=== PATIENT | male | born 1980 | race American Indian/Alaskan Native ===

== ENCOUNTER 2017-11-23 13:29 | Inpatient (IN) | payer OTHER ==
[2017-11-23 13:47] VITALS: TEMP 98.8; BMI 27.9
--- NOTE | 2017-11-23 14:33 | PDOC ---
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 Was just at his PCP Dr. Suárez who thinks he may have seen a right sided kidney stone on bedside U/S No previous history of kidney stones or appendicitis. Denies fever but states he hasn't been feeling hungry all day. Denies dysuria, hematuria. Past History - Past Medical History Allergies/Adverse Reactions: Allergies Allergy/AdvReac Type Severity Reaction Status Date / Time No Known Allergies Allergy Verified 11/23/17 13:44 Home Medications: Ambulatory Orders NK [No Known Home Medication] 11/23/17 Anemia: No Asthma: No Cancer: No Cardiac Disorders: No CVA: No COPD: No CHF: No Dementia: No Diabetes: No GI Disorders: Yes (RECTAL BLEEDING) Disorders: No HTN: No Hypercholesterolemia: No Liver Disease: No Seizures: No Thyroid Disease: No - Immunization History Immunization Up to Date: Yes - Suicide/Smoking/Psychosocial Hx Smoking History: Current every day smoker Have you smoked in the past 12 months: Yes Number of Cigarettes Smoked Daily: 10 Information on smoking cessation initiated: No Hx Alcohol Use: No Drug/Substance Use Hx: No Substance Use Type: None Review of Systems - Review of Systems Able to Perform ROS?: Yes Is the patient limited Djib[place]ian proficient: No Constitutional: Yes: Loss of Appetite HEENTM: No: Symptoms Reported Respiratory: No: Symptoms reported Cardiac (ROS): No: Symptoms Reported ABD/GI: Yes: See HPI : No: Symptoms Reported Musculoskeletal: No: Symptoms Reported Integumentary: No: Symptoms Reported Neurological: No: Symptoms reported All Other Systems: Reviewed and Negative *Physical Exam - Vital Signs Last Vital Signs Temp Pulse Resp BP Pulse Ox 98.8 F 108 H 14 139/82 100 11/23/17 13:45 11/23/17 13:45 11/23/17 13:45 11/23/17 13:45 11/23/17 13:45 - Physical Exam General Appearance: Yes: Nourished, Appropriately Dressed. No: Apparent Distress HEENT: positive: EOMI, HUAN, Normal ENT Inspection Respiratory/Chest: positive: Lungs Clear, Normal Breath Sounds. negative: Chest Tender, Respiratory Distress Cardiovascular: positive: Regular Rhythm, Regular Rate, S1, S2 Gastrointestinal/Abdominal: positive: Normal Bowel Sounds, Tender (right lower quadrant), Flat, Soft Musculoskeletal: positive: Normal Inspection. negative: CVA Tenderness Extremity: positive: Normal Capillary Refill, Normal Inspection, Normal Range of Motion Neurologic: positive: Fully Oriented, Alert, Normal Mood/Affect ED Treatment Course - LABORATORY CBC & Chemistry Diagram: 11/23/17 15:20 11/23/17 15:20 Medical Decision Making - Medical Decision Making 11/23/17 14:59 nephrolithiasis vs appendicitis vs bleed 11/23/17 16:41 All labs within normal limits, no anemia, CT abd pending. 11/23/17 20:06 There is a thick walled tubular structure within the right lower quadrant consistent with an inflamed appendix. Inflammatory stranding and free fluid is noted in this location. This is suspicious for rupture. No discrete abscess is present, however. Patient started on Antibiotics. Ordered factor 8, blood bank doesnt have any. Consulted Dr. Campbell, Kamini Manzano and hospitalist Dr. Perry and [employer]QU[employer] Rhonda Fischer. Paged Dr. Smith and the patient's Branch Assistant Dr. Vanessa Kellogg (dr. Kelton Ibrahim commercial collections driver) callback pending. *DC/Admit/Observation/Transfer Diagnosis at time of Disposition: Appendicitis - Discharge Dispostion Admit: Yes - Referrals Referrals: Mati Suárez MD [Primary Care Provider] - - Patient Instructions - Post Discharge Activity
--- NOTE | 2017-11-23 14:48 | PDOC ---
Attending Attestation - Resident Resident Name: Otto Decker - HPI HPI: 11/23/17 16:47 Pt presents to the ED complaining of R sided abdominal pain that has been present for several days. Denies fever, nausea or vomiting. History of hemophilia, with recent factor VIII adminstration last week. Denies trauma to the abdomen or urianry complaints. - Physicial Exam PE: 11/23/17 16:49 Agree with resident exam. Abdomen is tender diffusely on the right side on my exam. No bruising or abdominal distention. No guarding or rebound. - Medical Decision Making 11/23/17 16:50 PT presents to the ED complaining of abdominal pain. Differential includes renal stone, less likely bilary disease. Patient denies history of trauma to the abdomen, but given his history of hemophilia , will check CT to rule out renal stone, biliary disease or less likely, internal bleeding. Will reassess.
[2017-11-23 15:30] LABS: BASO % 0.3 % (0-2.0); EOS % 0.4 % (0-4.5); HEMATOCRIT 47.6 % (35.4-49); HEMOGLOBIN 16.1 GM/dL (11.7-16.9); LYMPH % 13.4 % (8-40); MCH 29.3 pg (25.7-33.7); MCHC 33.7 g/dl (32.0-35.9); MEAN CELL VOLUME 86.9 fl (80-96); MEAN PLT VOLUME 9.1 fl (7.5-11.1); MONO % 6.8 % (3.8-10.2); NEUT % 79.1 % (42.8-82.8); PLATELET COUNT 225 K/MM3 (134-434); RBC 5.48 M/mm3 (4.00-5.60); RDW 13.6 % (11.9-15.9); WHITE BLOOD COUNT 10.6 K/mm3 (4.0-10.0)
[2017-11-23 15:38] LABS: URINE APPEARANCE CLEAR; URINE BILIRUBIN NEGATIVE (NEGATIVE); URINE BLOOD NEGATIVE (NEGATIVE); URINE COLOR STRAW; URINE GLUCOSE (UA) NEGATIVE (NEGATIVE); URINE KETONE NEGATIVE (NEGATIVE); URINE LEUK ESTERASE NEGATIVE (NEGATIVE); URINE NITRITE NEGATIVE (NEGATIVE); URINE PROTEIN NEGATIVE (NEGATIVE); URINE UROBILINOGEN NEGATIVE mg/dL (0.2-1.0)
[2017-11-23] MEDS ORDERED: KETOROLAC TROMETHAMINE 15 MG/ML VIAL IVPUSH ONE (15:44)
[2017-11-23] MEDS ORDERED: KETOROLAC TROMETHAMINE 15 MG/ML VIAL ONE (15:45)
[2017-11-23 16:00] LABS: ALBUMIN 4.3 g/dl (3.4-5.0); ANION GAP 12 (8-16); BILIRUBIN,TOTAL 0.6 mg/dL (0.2-1.0); BLOOD UREA NITROGEN 5 mg/dL (7-18); CALCIUM 9.2 mg/dL (8.5-10.1); CHLORIDE 102 mmol/L (98-107); CO2 24 mmol/L (21-32); CREATININE 0.8 mg/dL (0.7-1.3); GLUCOSE,RANDOM 96 mg/dL (74-106); POTASSIUM 4.3 mmol/L (3.5-5.1); SGOT/AST 15 U/L (15-37); SGPT/ALT 18 U/L (12-78); SODIUM 138 mmol/L (136-145); TOT PROT 8.1 g/dl (6.4-8.2)
[2017-11-23 16:01] LABS: ALK PHOS 72 U/L (45-117)
[2017-11-23] MEDS ORDERED: ONDANSETRON 4 MG/2 ML VIAL IVPUSH ONE (18:09)
[2017-11-23] MEDS ORDERED: SODIUM CHLORIDE 1,000 ML IV STA ×2 (18:09→19:50)
[2017-11-23] MEDS ORDERED: ONDANSETRON 4 MG/2 ML VIAL ONE (18:28)
[2017-11-23] MEDS ORDERED: CEFAZOLIN 1 GM PUSH 1 GM/10 ML SYRINGE IVPUSH ONE (19:21)
--- NOTE | 2017-11-23 19:35 | CONSULT ---
Consult Consult Specialty:: general surgery Referred by:: Dr. Decker ED Reason for Consultation:: abdominal pain - History of Present Illness Chief Complaint: 3 days of abdominal pain History of Present Illness: 37 yo male with hemophelia A presented with 3 days of abdominal pain to the emergency department. CT scan reveals acute appendicitis. both hematology and surgery agree that this problem if it is to require surgical management the patient is best served at a tertiary care center - History Source History Provided By: Patient, Medical Record Limitations to Obtaining History: No Limitations - Past Medical History Heme/Onc: Yes: Bleeding Disorder (Hemophelia A) - Alcohol/Substance Use Hx Alcohol Use: No - Smoking History Smoking history: Current every day smoker Have you smoked in the past 12 months: Yes Aproximately how many cigarettes per day: 10 Home Medications - Allergies Allergies/Adverse Reactions: Allergies Allergy/AdvReac Type Severity Reaction Status Date / Time No Known Allergies Allergy Verified 11/23/17 13:44 - Home Medications Home Medications: Ambulatory Orders NK [No Known Home Medication] 11/23/17 Physical Exam Vital Signs: Vital Signs Temperature 98.8 F 11/23/17 13:45 Pulse Rate 74 11/23/17 17:40 Respiratory Rate 14 11/23/17 13:45 Blood Pressure 134/66 11/23/17 17:40 O2 Sat by Pulse Oximetry (%) 100 11/23/17 17:40 Labs: CBC, BMP 11/23/17 15:20 11/23/17 15:20 Problem List - Problems (1) Appendicitis Assessment/Plan: Have not had the opportunity to examine the patient but agree with transfer to tertiary center for further management. Code(s): K37 - UNSPECIFIED APPENDICITIS Qualifiers: Appendicitis type: acute appendicitis Acute appendicitis type: with localized peritonitis Qualified Code(s): K35.3 - Acute appendicitis with localized peritonitis (2) Hemophilia A Code(s): D66 - HEREDITARY FACTOR VIII DEFICIENCY (3) GERD (gastroesophageal reflux disease) Code(s): K21.9 - GASTRO-ESOPHAGEAL REFLUX DISEASE WITHOUT ESOPHAGITIS Qualifiers: Esophagitis presence: without esophagitis Qualified Code(s): K21.9 - Gastro -esophageal reflux disease without esophagitis (4) Headache Code(s): R51 - HEADACHE
[2017-11-23] MEDS ORDERED: CEFAZOLIN 1 GM PUSH 1 GM/10 ML DISP.SYRIN IVPUSH ONE (19:48)
[2017-11-23 20:23] LABS: INR 1.03 (0.82-1.09); PROTHROMBIN TIME (PATIENT) 11.6 SEC (9.98-11.88)
[2017-11-23 20:25] LABS: ACTIVATED PTT 74.9 SECONDS (26.9-34.4)
--- NOTE | 2017-11-23 20:29 | HP ---
CHIEF COMPLAINT: Abdominal pain PCP: Kamini; Hematology: [facility] [phone] HISTORY OF PRESENT ILLNESS: This is a 37 year old male with a significant past medical history of hemophilia who presented to the ED with a 2 day history of generalized abdominal pain that has localized to his RLQ. He denies vomiting but reports loss of appetite. ER course was notable for: (1) CT c/w appendicitis, concerning for rupture (2) WBC 10.6 Recent Travel: pt denies PAST MEDICAL HISTORY: hemophilia-last received factor VIII last week PAST SURGICAL HISTORY: pt denies- has had tooth extractions in past Social History: Smokin/2 PPD x 10 years Alcohol: pt denies Drugs: pt denies Family History: mother with DM father age 58, CVA 1 brother, 2 sisters without any medical problems Allergies No Known Allergies Allergy (Verified 11/23/17 13:44) HOME MEDICATIONS: 3 Medication Instructions Recorded NK [No Known Home Medication] 11/23/17 REVIEW OF SYSTEMS CONSTITUTIONAL: Absent: fever, chills, diaphoresis, generalized weakness, malaise, loss of appetite, weight change HEENT: Absent: rhinorrhea, nasal congestion, throat pain, throat swelling, difficulty swallowing, mouth swelling, ear pain, eye pain, visual changes CARDIOVASCULAR: Absent: chest pain, syncope, palpitations, irregular heart rate, lightheadedness , peripheral edema RESPIRATORY: Absent: cough, shortness of breath, dyspnea with exertion, orthopnea, wheezing, stridor, hemoptysis GASTROINTESTINAL: Present: abdominal pain Absent: abdominal distension, nausea, vomiting, diarrhea, constipation, melena, hematochezia GENITOURINARY: Absent: dysuria, frequency, urgency, hesitancy, hematuria, flank pain, genital pain MUSCULOSKELETAL: Absent: myalgia, arthralgia, joint swelling, back pain, neck pain SKIN: Absent: rash, itching, pallor HEMATOLOGIC/IMMUNOLOGIC: Absent: easy bleeding, easy bruising, lymphadenopathy, frequent infections ENDOCRINE: Absent: unexplained weight gain, unexplained weight loss, heat intolerance, cold intolerance NEUROLOGIC: Absent: headache, focal weakness or paresthesias, dizziness, unsteady gait, seizure, mental status changes, bladder or bowel incontinence PSYCHIATRIC: Absent: anxiety, depression, suicidal or homicidal ideation, hallucinations. PHYSICAL EXAMINATION Vital Signs - 24 hr 3 11/23/17 11/23/17 13:45 17:40 Temperature 98.8 F Pulse Rate 108 H Pulse Rate [ 74 Apical] Respiratory 14 Rate Blood Pressure 139/82 Blood Pressure 134/66 [Right Arm] O2 Sat by Pulse 100 100 Oximetry (%) GENERAL: Awake, alert, and fully oriented, in no acute distress. HEAD: Normal with no signs of trauma. EYES: Pupils equal, round and reactive to light, extraocular movements intact, sclera anicteric, conjunctiva clear. No lid lag. EARS, NOSE, THROAT: Ears normal, nares patent, oropharynx clear without exudates. Moist mucous membranes. NECK: Normal range of motion, supple without lymphadenopathy, JVD, or masses. LUNGS: Breath sounds equal, clear to auscultation bilaterally. No wheezes, and no crackles. No accessory muscle use. HEART: Regular rate and rhythm, normal S1 and S2 without murmur, rub or gallop. ABDOMEN: Soft, not distended, normoactive bowel sounds, + guarding, no rebound, no masses. No hepatomegaly or splenomegaly. Tender to palpation RLQ MUSCULOSKELETAL: Normal range of motion at all joints. No bony deformities or tenderness. No CVA tenderness. UPPER EXTREMITIES: 2+ pulses, warm, well-perfused. No cyanosis. No clubbing. No peripheral edema. LOWER EXTREMITIES: 2+ pulses, warm, well-perfused. No calf tenderness. No peripheral edema. NEUROLOGICAL: Cranial nerves II-XII intact. Normal speech. Normal gait. PSYCHIATRIC: Cooperative. Good eye contact. Appropriate mood and affect. SKIN: Warm, dry, normal turgor, no rashes or lesions noted, normal capillary refill. Laboratory Results - last 24 hr 3 11/23/17 11/23/17 11/23/17 11/23/17 15:20 15:20 15:20 19:35 WBC 10.6 H D RBC 5.48 Hgb 16.1 D Hct 47.6 MCV 86.9 MCH 29.3 D MCHC 33.7 RDW 13.6 D Plt Count 225 MPV 9.1 Neutrophils % 79.1 D Lymphocytes % 13.4 D Monocytes % 6.8 Eosinophils % 0.4 Basophils % 0.3 PT with INR 11.60 INR 1.03 PTT (Actin FS) 74.9 H Sodium 138 Potassium 4.3 Chloride 102 Carbon Dioxide 24 Anion Gap 12 BUN 5 L D Creatinine 0.8 Creat Clearance w eGFR > 60 Random Glucose 96 D Calcium 9.2 Total Bilirubin 0.6 D AST 15 ALT 18 D Alkaline Phosphatase 72 Total Protein 8.1 Albumin 4.3 Urine Color Straw Urine Appearance Clear Urine pH 7.0 Ur Specific [place] 1.006 Urine Protein Negative Urine Glucose (UA) Negative Urine Ketones Negative Urine Blood Negative Urine Nitrite Negative Urine Bilirubin Negative Urine Urobilinogen Negative Ur Leukocyte Esterase Negative Radiology Reports CT abd/pelvis The lung bases are clear. There is a thick walled tubular structure within the right lower quadrant consistent with an inflamed appendix. Inflammatory stranding and free fluid is noted in this location. This is suspicious for rupture. No discrete abscess is present, however. The liver, spleen, pancreas, adrenal glands and kidneys demonstrate no significant abnormalities. There is no evidence of intra-abdominal or retroperitoneal lymphadenopathy or fluid collections. There is no evidence of pneumoperitoneum, bowel obstruction or intra-abdominal abscess. Examination of the pelvis demonstrates no evidence of pelvic masses, fluid collections or lymphadenopathy. There is no evidence of acute bony abnormalities. IMPRESSION: Findings consistent with acute appendicitis with inflammatory changes and free fluid suspicious for rupture. No discrete abscess. Please see above discussion. Reported By: Sanjiv Rowe MD 11/23/171912 ASSESSMENT/PLAN: 37yM with PMH hemophilia, factor VIII deficiency presented to the ED with abdominal pain. CT revealed acute appendicitis concerning for rupture. Acute Appendicitis - given flagyl and cefazolin in ED - given hemophilia, hematology, Dr Smith, was consulted and he [facility] contacted. Dr. Sb Grossman from surgery accepted pt. - Pt's private hematology group was contacted, DW Dr. Ibrahim who is covering and made aware of transfer. He is in agreement. He will follow pt once at [facility] - ED made aware of transfer. Pt will be an ED to ED transfer. - CT scan contacted who will upload images to regional PACS system. MARY - NS @ 75cc/hr - BMP WNL - NPO Dispo: pt to be transferred to [facility]. Visit type - Emergency Visit Emergency Visit: Yes ED Registration Date: 11/23/17 Care time: The patient presented to the Emergency Department on the above date and was hospitalized for further evaluation of their emergent condition. - New Patient This patient is new to me today: Yes Date on this admission: 11/23/17 - Critical Care Critical Care patient: No Hospitalist Screening - Colonoscopy Questionnaire Colonoscopy Questionnaire: Colonoscopy Questionnaire - Patient: 50 - 75 years old and never had a screening colonoscopy: No History of colon or rectal polyps, or CA: No History of IBD, Crohn's disease or UC: No History of abdominal radiation therapy as a child: No - Relative: 1 with colon or rectal CA, or polyps at age 60 or younger: No Colon or rectal CA diagnosed at age 45 or younger: No Multiple relatives with colon or rectal CA: No - Outcome: Screening Result: Negative Screen
[2017-11-23 20:55] VITALS: BP 124/91; PULSE 89
--- NOTE | 2017-11-23 21:24 | DS ---
Physical Exam: SUBJECTIVE: Patient seen and examined OBJECTIVE: Vital Signs Period Temp Pulse Resp BP Sys/Gonzalez Pulse Ox Last 24 Hr 98.8 F 74-108 14-16 124-139/66-91 100-100 PHYSICAL EXAM GENERAL: The patient is awake, alert, and fully oriented, in no acute distress. HEAD: Normal with no signs of trauma. EYES: PERRL, extraocular movements intact, sclera anicteric, conjunctiva clear. ENT: Ears normal, nares patent, oropharynx clear without exudates, moist mucous membranes. NECK: Trachea midline, full range of motion, supple. LUNGS: Breath sounds equal, clear to auscultation bilaterally, no wheezes, no crackles, no accessory muscle use. HEART: Regular rate and rhythm, S1, S2 without murmur, rub or gallop. ABDOMEN: Soft, nontender, nondistended, normoactive bowel sounds, no guarding, no rebound, no hepatosplenomegaly, no masses. EXTREMITIES: 2+ pulses, warm, well-perfused, no edema. NEUROLOGICAL: Cranial nerves II through XII grossly intact. Normal speech, gait not observed. PSYCH: Normal mood, normal affect. SKIN: Warm, dry, normal turgor, no rashes or lesions noted. LABS Laboratory Results - last 24 hr 11/23/17 11/23/17 11/23/17 15:20 15:20 15:20 WBC 10.6 H D RBC 5.48 Hgb 16.1 D Hct 47.6 MCV 86.9 MCH 29.3 D MCHC 33.7 RDW 13.6 D Plt Count 225 MPV 9.1 Neutrophils % 79.1 D Lymphocytes % 13.4 D Monocytes % 6.8 Eosinophils % 0.4 Basophils % 0.3 PT with INR INR PTT (Actin FS) Sodium 138 Potassium 4.3 Chloride 102 Carbon Dioxide 24 Anion Gap 12 BUN 5 L D Creatinine 0.8 Creat Clearance w eGFR > 60 Random Glucose 96 D Calcium 9.2 Total Bilirubin 0.6 D AST 15 ALT 18 D Alkaline Phosphatase 72 Total Protein 8.1 Albumin 4.3 Urine Color Straw Urine Appearance Clear Urine pH 7.0 Ur Specific [place] 1.006 Urine Protein Negative Urine Glucose (UA) Negative Urine Ketones Negative Urine Blood Negative Urine Nitrite Negative Urine Bilirubin Negative Urine Urobilinogen Negative Ur Leukocyte Esterase Negative 11/23/17 19:35 WBC RBC Hgb Hct MCV MCH MCHC RDW Plt Count MPV Neutrophils % Lymphocytes % Monocytes % Eosinophils % Basophils % PT with INR 11.60 INR 1.03 PTT (Actin FS) 74.9 H Sodium Potassium Chloride Carbon Dioxide Anion Gap BUN Creatinine Creat Clearance w eGFR Random Glucose Calcium Total Bilirubin AST ALT Alkaline Phosphatase Total Protein Albumin Urine Color Urine Appearance Urine pH Ur Specific [place] Urine Protein Urine Glucose (UA) Urine Ketones Urine Blood Urine Nitrite Urine Bilirubin Urine Urobilinogen Ur Leukocyte Esterase HOSPITAL COURSE: Date of Admission:11/23/17 Date of Discharge: 11/23/17 This is a 37 year old male with a PMH of hemophilia, factor VIII deficiency who presented to the ED with abdominal pain, now localizing to RLQ. CT revealed acute appendicitis. Hematology contacted who recommends transfer to [facility] as factor VIII activity is unable to be monitored here. [facility] transfer center contacted. Dr. Sb Grossman accepted pt. Dr. Ibrahim of hematology (covering for Dr. Kellogg) made aware of transfer and his group will follow pt at [facility]. Pt is aware of transfer and is in agreement. Pt to be transferred to [facility]. Minutes to complete discharge: 45 Discharge Summary Reason For Visit: APPENDICITIS Current Active Problems Appendicitis (Acute) Condition: Stable - Instructions Referrals: Mati Suárez MD [Primary Care Provider] - Disposition: TRANSFER ACUTE CARE/OTHER HOSP - Home Medications Comprehensive Discharge Medication List: Ambulatory Orders NK [No Known Home Medication] 11/23/17 This patient is new to me today: Yes Date on this admission: 11/23/17 Emergency Visit: Yes ED Registration Date: 11/23/17 Care time: The patient presented to the Emergency Department on the above date and was hospitalized for further evaluation of their emergent condition. Critical Care patient: No - Discharge Referral Referred to [facility] Med P.C.: No
[2017-11-23] MEDS ORDERED: SODIUM CHLORIDE 1,000 ML IV SCH (21:30)
[2017-11-23] MEDS ORDERED: morphine CARPU-JECT 2 MG/1 ML DISP.SYRIN IVPUSH ONE (21:40)
[2017-11-23] MEDS ORDERED: MORPHINE SULFATE 10 MG/1 ML *VIAL ONE (21:42)
[2017-11-24] MEDS ORDERED: CEFTRIAXONE IN IS-OSM DEXTROSE 2 GM/50 ML BAG IVPB SCH (04:00)
== END 2017-11-23 22:00 | disposition short-term general hospital (02) | DRG 254 ==
LOC: JER 13:29 → JERBED 19:51
PROVIDERS: ADMIT Internal Medicine; ATTEND Nurse Practitioner Family
DX: K35.80 Unspecified acute appendicitis (principal); D66 Hereditary factor VIII deficiency; F17.210 Nicotine dependence, cigarettes, uncomplicated; K21.9 Gastro-esophageal reflux disease without esophagitis; R51 Headache
CPT/HCPCS: 36415; 74177-TC; 80053; 81003; 85025; 85240; 85610; 85730; 86850; 86900; 86901; 87086; 99284-25

== ENCOUNTER 2018-11-19 17:24 | Emergency (ER) | payer OTHER ==
--- NOTE | 2018-11-19 17:38 | PDOC ---
Rapid Medical Evaluation Time Seen by Provider: 11/19/18 17:34 Medical Evaluation: Allergies Allergy/AdvReac Type Severity Reaction Status Date / Time No Known Allergies Allergy Verified 11/23/17 13:44 11/19/18 17:34 I have performed a brief in-person evaluation of this patient. The patient presents with a chief complaint of: GOMEZ w/ dizziness today. Also reports that L leg feels stiff vs heavy but no extremity weakness, visual changes or slurred speech. H/o migraines but reports GOMEZ now feels different, smoker Pertinent physical exam findings:stable, well aris and non-focal I have ordered the following:labs The patient will proceed to the ED for further evaluation. Discharge Disposition - Diagnosis Headache - Referrals - Patient Instructions - Post Discharge Activity
[2018-11-19 17:39] VITALS: BP 133/88; PULSE 86; TEMP 98.4; BMI 30.7
[2018-11-19 18:23] LABS: BASO % 0.6 % (0-2.0); EOS % 0.9 % (0-4.5); HEMATOCRIT 44.5 % (35.4-49); HEMOGLOBIN 15.7 GM/dL (11.7-16.9); LYMPH % 22.6 % (8-40); MCH 31.3 pg (25.7-33.7); MCHC 35.4 g/dl (32.0-35.9); MEAN CELL VOLUME 88.3 fl (80-96); MEAN PLT VOLUME 9.1 fl (7.5-11.1); MONO % 4.5 % (3.8-10.2); NEUT % 71.4 % (42.8-82.8); PLATELET COUNT 236 K/MM3 (134-434); RBC 5.03 M/mm3 (4.00-5.60); RDW 13.4 % (11.9-15.9)
[2018-11-19 19:02] LABS: ALBUMIN 4.4 g/dl (3.4-5.0); ALK PHOS 66 U/L (45-117); ANION GAP 7 MMOL/L (8-16); BILIRUBIN,TOTAL 0.2 mg/dL (0.2-1); BLOOD UREA NITROGEN 10 mg/dL (7-18); CALCIUM 8.7 mg/dL (8.5-10.1); CHLORIDE 104 mmol/L (98-107); CO2 26 mmol/L (21-32); CREATININE 0.9 mg/dL (0.55-1.3); GLUCOSE,RANDOM 107 mg/dL (74-106); POTASSIUM 4.1 mmol/L (3.5-5.1); SGOT/AST 19 U/L (15-37); SGPT/ALT 32 U/L (13-61); SODIUM 137 mmol/L (136-145); TOT PROT 7.6 g/dl (6.4-8.2)
[2018-11-19 20:02] LABS: URINE APPEARANCE CLEAR; URINE BILIRUBIN NEGATIVE (<2.0 mg/dL); URINE COLOR STRAW; URINE GLUCOSE (UA) NEGATIVE (NEGATIVE); URINE KETONE NEGATIVE (NEGATIVE); URINE LEUK ESTERASE NEGATIVE (NEGATIVE); URINE NITRITE NEGATIVE (NEGATIVE); URINE PROTEIN NEGATIVE (NEGATIVE); URINE UROBILINOGEN NEGATIVE mg/dL (0.2-1.0)
[2018-11-19] MEDS ORDERED: METOCLOPRAMIDE HCL INJECTION 10 MG/2 ML VIAL IVPUSH ONE (20:33)
--- NOTE | 2018-11-19 20:42 | PDOC ---
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 He states this headache is much worse than his usual headache. He also states that the headache was worst at onet and did not come on gradually. He says that he felt very dizzy when the headache came on, was lightheaded and said that he felt like he was going to fall down but did not fall. He denies having experienced any visual or speech changes at any point today. He also states he has left thigh pain which came on suddenly today. He denies any weakness, numbness, or tingling of the extremity. He denies recent fevers, chills, infections, blurry vision, vertigo, neck pain, back pain, chest pain, SOB, difficulty breathing, abdominal pain, diarrhea, constipation, ankle/leg swelling. PCP: Dr. Suárez PSH: Abdominal hernia surgery Allergies: NKA, NKDA Social Hx: Smokes 6 cigarettes a day. Denies drinking or other drug usage. Family Hx: mother with DM, father age 58 - CVA, 1 brother, 2 sisters without any medical problems. Past History - Past Medical History Allergies/Adverse Reactions: Allergies Allergy/AdvReac Type Severity Reaction Status Date / Time No Known Allergies Allergy Verified 11/19/18 22:37 Home Medications: Ambulatory Orders NK [No Known Home Medication] 11/23/17 Anemia: No Asthma: No Cancer: No Cardiac Disorders: No CVA: No COPD: No CHF: No Dementia: No Diabetes: No GI Disorders: Yes (RECTAL BLEEDING) Disorders: No HTN: No Hypercholesterolemia: No Liver Disease: No Seizures: No Thyroid Disease: No - Immunization History Immunization Up to Date: Yes - Suicide/Smoking/Psychosocial Hx Smoking History: Current every day smoker Have you smoked in the past 12 months: Yes Number of Cigarettes Smoked Daily: 10 Information on smoking cessation initiated: No Hx Alcohol Use: No Drug/Substance Use Hx: No Substance Use Type: None Review of Systems - Review of Systems Able to Perform ROS?: Yes Comments:: CONSTITUTIONAL: Absent: fever, no chills, no fatigue EYES: Absent: visual changes ENT: Absent: ear pain, no sore throat CARDIOVASCULAR: Absent: chest pain, no palpitations RESPIRATORY: Absent: cough, no SOB GI: Absent: abdominal pain, no nausea, no vomiting, no constipation, no diarrhea GENITOURINARY: Absent: dysuria, no frequency, no hematuria MUSKULOSKELETAL: Present: Arthralgia Absent: back pain, no myalgia SKIN: Absent: rash NEURO: Present: headache, dizziness, unsteady gait Absent: focal weakness or paresthesias, seizure, mental status changes, bladder or bowel incontinence *Physical Exam - Vital Signs Last Vital Signs Temp Pulse Resp BP Pulse Ox 98.4 F 86 20 133/88 97 11/19/18 17:37 11/19/18 17:37 11/19/18 17:37 11/19/18 17:37 11/19/18 17:37 - Physical Exam Comments: GENERAL: Well-appearing, well-nourished. No apparent distress. HEENT: Normocephalic, atraumatic. PERRL, EOM intact. CARDIOVASCULAR: Normal S1, S2. Regular rate and rhythm. PULMONARY: No evidence of respiratory distress. Lungs clear to auscultation bilaterally. No wheezing, rales or rhonchi. ABDOMEN: Soft, non-distended, non-tender. EXTREMITIES: Normal ROM in all four extremities. No gross deformities. SKIN: Warm, dry. No rash NEUROLOGICAL: Alert, awake, appropriate. Cranial nerves 2-12 intact. No deficits to light touch in face, upper extremities and lower extremities. No motor deficits in the in face, upper extremities and lower extremities. Normal speech. Moderate Sedation - Procedure Monitoring Vital Signs: Procedure Monitoring Vital Signs Temperature 98.4 F 11/19/18 17:37 Pulse Rate 86 11/19/18 17:37 Respiratory Rate 20 11/19/18 17:37 Blood Pressure 133/88 11/19/18 17:37 O2 Sat by Pulse Oximetry (%) 97 11/19/18 17:37 ED Treatment Course - LABORATORY CBC & Chemistry Diagram: 11/19/18 17:58 11/19/18 17:58 - ADDITIONAL ORDERS Additional order review: Laboratory Results 11/19/18 11/19/18 19:33 17:58 Sodium 137 Potassium 4.1 Chloride 104 Carbon Dioxide 26 Anion Gap 7 L BUN 10 Creatinine 0.9 Creat Clearance w eGFR > 60 Random Glucose 107 H Calcium 8.7 Total Bilirubin 0.2 AST 19 ALT 32 Alkaline Phosphatase 66 Creatine Kinase 121 Troponin I < 0.02 Total Protein 7.6 Albumin 4.4 Urine Color Straw Urine Appearance Clear Urine pH 5.0 D Ur Specific Malone 1.011 Urine Protein Negative Urine Glucose (UA) Negative Urine Ketones Negative Urine Blood Negative Urine Nitrite Negative Urine Bilirubin Negative Urine Urobilinogen Negative Ur Leukocyte Esterase Negative 11/19/18 17:58 RBC 5.03 MCV 88.3 MCHC 35.4 RDW 13.4 MPV 9.1 Neutrophils % 71.4 Lymphocytes % 22.6 D Monocytes % 4.5 Eosinophils % 0.9 D Basophils % 0.6 - RADIOLOGY Radiology Studies Ordered: Category Date Time Status HEAD CT WITHOUT CONTRAST [CT] Stat CT Scan 11/19/18 20:34 Ordered Medical Decision Making - Medical Decision Making 38 yo M w a hx of hemophilia A taking factor VIII replacement and migraines presents to the ER after experiencing a painful headache that started today today at 4:30 while he was working at the [employer]. He states this headache is much worse than his usual headache. He also states that the headache was worst at onet and did not come on gradually. He says that he felt very dizzy when the headache came on, was lightheaded and said that he felt like he was going to fall down but did not fall. He denies having experienced any visual or speech changes at any point today. He also states he has left thigh pain which came on suddenly today. He denies any weakness, numbness, or tingling of the extremity. VS: WNL DDx IBNLT: CVA/TIA, SAH, Migraine headache vs cluster vs tension, Hematoma, other bleed. Plan: Labs, urine, IV hydration, reglan, benadryl, Head CTA, flu swab, EKG, re- assess. PTT - 75. Elevated 2/2 hemophilia A Labs otherwise unremarkable. Patient feels better after IV hydration and supportive care. Head CTA shows no abnormalities Will DC w neuro fu *DC/Admit/Observation/Transfer Diagnosis at time of Disposition: Headache - Discharge Dispostion Disposition: HOME Condition at time of disposition: Improved Decision to Admit order: No - Referrals Referrals: Mati Suárez MD [Primary Care Provider] - Ez Mata MD [Staff Physician] - - Patient Instructions Printed Discharge Instructions: Hemophilia, DI for Headache Additional Instructions: You came into the ER with a headache. We looked at your blood and urine and found no abnormalities. We noticed that your bleeding clotting factor PTT time is elevated likely secondary to your hemophilia. Please make sure to follow up regarding this matter with your primary care physician. We are giving you the number for a neurologist to call and schedule an appointment with regarding your headaches. Please make sure to call and schedule an appointment. Come back to the ER if your headache worsens, you get a fever, or have any other new or worsening conerns. Thank you for coming to the [facility] ER. We hope you feel better soon! Print Language: AMHARIC - Post Discharge Activity
[2018-11-19] MEDS ORDERED: SODIUM CHLORIDE 0.9% 500 ML INFUS.BAG IV ONE (20:45)
[2018-11-19] MEDS ORDERED: METOCLOPRAMIDE HCL INJECTION 10 MG/2 ML VIAL ONE (20:49)
[2018-11-19 21:03] LABS: INR 0.92 (0.83-1.09); PROTHROMBIN TIME (PATIENT) 10.9 SEC (9.7-13.0)
--- NOTE | 2018-11-19 21:14 | PDOC ---
Attending Attestation - HPI HPI: 11/19/18 21:17 The patient is a 38 year old male, with a significant PMH of hemophilia A (low factor VIII), who presents to the emergency department for evaluation of a severe headache around 4:30pm today while at work. Patient states the headache is in the occipital region, was bad at onset but has been getting better. Patient does have a history of migraines but states that this is not like any other headache he has experienced. He describes that he got dizzy and felt lightheaded and as if he was going to faint, but did not. Patient also notes left lower extremity pain with onset today. The patient denies chest pain and shortness of breath. Denies fever, chills, nausea, vomit, diarrhea and constipation. Denies dysuria, frequency, urgency and hematuria. Allergies: NKA Social history: None reported Family history: Father passed from a stroke at a young age PCP: Dr. Suárez - Physicial Exam PE: 11/19/18 23:26 GENERAL: Awake, alert, and fully oriented, in no acute distress HEAD: No signs of trauma EYES: PERRLA, EOMI, sclera anicteric, conjunctiva clear ENT: Auricles normal inspection, hearing grossly normal, nares patent, oropharynx clear without exudates. Moist mucosa NECK: Normal ROM, supple, no lymphadenopathy, JVD, or masses LUNGS: Breath sounds equal, clear to auscultation bilaterally. No wheezes, and no crackles HEART: Regular rate and rhythm, normal S1 and S2, no murmurs, rubs or gallops ABDOMEN: Soft, nontender, normoactive bowel sounds. No guarding, no rebound. No masses EXTREMITIES: Normal range of motion, no edema. No clubbing or cyanosis. No cords, erythema, or tenderness NEUROLOGICAL: Cranial nerves II through XII grossly intact. Normal speech, normal gait SKIN: Warm, Dry, normal turgor, no rashes or lesions noted. <Ingrid Martinez - Last Filed: 11/19/18 23:26> - Resident Resident Name: Trav Jones - ED Attending Attestation I have performed the following: I have examined & evaluated the patient, The case was reviewed & discussed with the resident, I agree w/resident's findings & plan - Medical Decision Making 11/19/18 22:17 All labs normal and flu normal. exam normal. Pt will follow with his neurologist Dr. Durant <Kika Newman - Last Filed: 11/20/18 04:53> Attestations - Attestations 11/19/18 21:17 Documentation prepared by Ingrid Martinez, acting as medical driver for Kika Newman MD. <Ingrid Martinez - Last Filed: 11/19/18 23:26>
[2018-11-19 23:10] LABS: ACTIVATED PTT 75.5 SECONDS (25.2-36.5)
--- NOTE | 2018-11-20 22:04 | EKG ---
Test Reason : Blood Pressure : / mmHG Vent. Rate : 077 BPM Atrial Rate : 077 BPM P-R Int : 158 ms QRS Dur : 090 ms QT Int : 374 ms P-R-T Axes : 052 -06 028 degrees QTc Int : 423 ms NORMAL SINUS RHYTHM NORMAL ECG WHEN COMPARED WITH ECG OF 06-MAY-2011 08:41, NO SIGNIFICANT CHANGE WAS FOUND Confirmed by ODILIA PLUMMRE MD ([id number]) on 11/20/2018 10:04:19 PM Referred By: Confirmed By:ODILIA PLUMMER MD
== END 2018-11-19 23:47 | disposition home or self-care (01) ==
LOC: JER 17:24
PROC: 3E033GC Introduction of Other Therapeutic Substance into Peripheral Vein, Percutaneous Approach (ICD-10-PCS; principal; 2018-11-19)
PROC: 3E033GC Introduction of Other Therapeutic Substance into Peripheral Vein, Percutaneous Approach (ICD-10-PCS; 2018-11-19)
DX: R51 Headache (principal); G43.909 Migraine, unspecified, not intractable, without status migrainosus; D66 Hereditary factor VIII deficiency
CPT/HCPCS: 36415; 70496-TC; 80053; 81003; 82550; 84484; 85025; 85610; 85730; 86850; 86900; 86901; 87804; 93005; 93010; 96374; 96375; 99282-25

== ENCOUNTER 2019-06-07 20:01 | Emergency (ER) | payer OTHER ==
[2019-06-07] MEDS ORDERED: KETOROLAC TROMETHAMINE 60 MG/2 ML VIAL IM ONE (20:12)
[2019-06-07] MEDS ORDERED: CYCLOBENZAPRINE HCL 10 MG TABLET (FP) PO ONE (20:12)
--- NOTE | 2019-06-07 20:12 | PDOC ---
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 Pertinent physical exam findings: tender to rt trapezius , lrom with rt rotation I have ordered the following: flexeril and toradol The patient will proceed to the ED for further evaluation. Discharge Disposition - Diagnosis Neck pain - Referrals - Patient Instructions - Post Discharge Activity
[2019-06-07 20:13] VITALS: BP 135/82; PULSE 91; TEMP 98.5; BMI 29.0
[2019-06-07] MEDS ORDERED: CYCLOBENZAPRINE HCL 10 MG TABLET (FP) ONE (20:58)
[2019-06-07] MEDS ORDERED: KETOROLAC TROMETHAMINE 60 MG/2 ML VIAL ONE (20:58)
--- NOTE | 2019-06-07 21:05 | PDOC ---
History of Present Illness - General Chief Complaint: Pain, Acute Stated Complaint: NECK PAIN Time Seen by Provider: 06/07/19 20:10 - History of Present Illness Initial Comments: 06/07/19 21:04 38 y/o M w/o CM present presents for evaluation of cervical spine pain without gross deficits, systemic symptoms, there is however R arm radiculopathy x3 days without precipitating traumatic event. Past History - Past Medical History Allergies/Adverse Reactions: Allergies Allergy/AdvReac Type Severity Reaction Status Date / Time No Known Allergies Allergy Verified 11/19/18 22:37 Home Medications: Ambulatory Orders Cyclobenzaprine HCl [Flexeril 10 mg] 10 mg PO HS PRN #10 tablet 06/07/19 Methylprednisolone [Medrol Dose Laz] 4 mg PO ASDIR #21 tablet 06/07/19 Anemia: No Asthma: No Cancer: No Cardiac Disorders: No CVA: No COPD: No CHF: No Dementia: No Diabetes: No GI Disorders: Yes (RECTAL BLEEDING) Disorders: No HTN: No Hypercholesterolemia: No Liver Disease: No Seizures: No Thyroid Disease: No - Immunization History Immunization Up to Date: Yes - Suicide/Smoking/Psychosocial Hx Smoking History: Current every day smoker Have you smoked in the past 12 months: Yes Number of Cigarettes Smoked Daily: 5 Information on smoking cessation initiated: No Hx Alcohol Use: No Drug/Substance Use Hx: No Substance Use Type: None Review of Systems - Review of Systems Constitutional: No: Fever Musculoskeletal: Yes: Neck Pain *Physical Exam - Vital Signs Last Vital Signs Temp Pulse Resp BP Pulse Ox 98.5 F 91 H 17 135/82 99 06/07/19 20:09 06/07/19 20:09 06/07/19 20:09 06/07/19 20:09 06/07/19 20:09 - Physical Exam Comments: 06/07/19 21:03 Cervical spine skin color and temperature are normal; range of motion slightly decreased. 5 out of 5 strength bilateral upper extremities. There is no midline tenderness, there is moderate right sided trap and paracervical muscular spasm and tenderness. NVID free of any gross sensory or motor deficits Medical Decision Making - Medical Decision Making 06/07/19 21:02 Cervical radiculopathy without gross deficits, Torodol in th er and medrol dose pack w flexeril at home neuro surgery f/u *DC/Admit/Observation/Transfer Diagnosis at time of Disposition: Neck pain, Cervical radiculopathy - Discharge Dispostion Disposition: HOME Condition at time of disposition: Stable Decision to Admit order: No - Prescriptions Prescriptions: Cyclobenzaprine HCl [Flexeril 10 mg] 10 mg PO HS PRN #10 tablet PRN Reason: Muscle Spasms Methylprednisolone [Medrol Dose Laz] 4 mg PO ASDIR #21 tablet - Referrals Referrals: Mati Suárez MD [Primary Care Provider] - Dariusz Villaseñor MD, FAANS [Staff Physician] - - Patient Instructions Additional Instructions: Please start steroid pack in the morning. Take the medication as directed. The muscle relaxers one tablet before bedtime and will make you sleepy. you may take Tylenol as directed in addition to the steroid pack. Avoid anti- inflammatory such as Advil Motrin Aleve and ibuprofen. You're given an injection of a long-acting anti-inflammatory in the emergency room do not take any anti-inflammatories. Return to the emergency room should symptoms worsen or go unresolved and follow- up with neuro or spine surgery without fail in 1-2 days for further evaluation and treatment options. - Post Discharge Activity
== END 2019-06-07 21:14 | disposition home or self-care (01) ==
LOC: JERFT 20:01
PROC: 3E0233Z Introduction of Anti-inflammatory into Muscle, Percutaneous Approach (ICD-10-PCS; principal; 2019-06-07)
DX: M54.12 Radiculopathy, cervical region (principal)
CPT/HCPCS: 96372; 99281-25

== ENCOUNTER 2020-06-14 19:22 | Emergency (ER) | payer OTHER ==
[2020-06-14 19:29] VITALS: BMI 30.4
--- NOTE | 2020-06-14 19:40 | PDOC ---
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 Patient said that he woke up with shoulder pain in his left shoulder. Patient said he sleeps with his arms over his head and thinks maybe that is the cause of the pain. However pain is been persisting for 6 days now and he comes in for evaluation. Patient said the only thing he is able to take for the pain is Tylenol because he has hemophilia. Patient otherwise denies any other complaints. Allergies: as per nursing notes Past Medical History: none Social history: Lives with family. No smoking. No alcohol. No illicit drugs. Surgical history: None General: No fevers or chills, no weakness, no weight loss HEENT: No change in vision. No sore throat,. No ear pain CardioVascular: no chest discomfort. No shortness of breath Respiratory:No cough, or wheezing. Gastrointestinal: no nausea, vomiting, diarrhea or constipation, No rectal bleeding Genitourinary: No dysuria, hematuria, or frequency Musculoskeletal: No joint or muscle pain or swelling Neurologic: No headache, vertigo, dizziness or loss of consciousness Psychiatric: nor depression Skin: No rashes or easy bruising Endocrine: no increased thirst or abnormal weight change Allergic: no skin or latex allergy All other systems reviewed and normal GENERAL: The patient is awake, alert, and fully oriented, in no acute distress. HEENT:Head is normal with no signs of trauma. Eyes: Pupils equal, round and reactive to light, Ears, and Throat are normal. Neck is supple. No Lymphadenopathy. EXTREMITIES:atraumatic, Normal range of motion, no edema. There is pain on palpation of the anterior rotator cuff of the left shoulder. There is full range of motion and neurovascular is intact. However patient does experience increased pain with resistance against external rotation and abduction. NEUROLOGICAL: Normal speech, normal gait. PSYCH: Normal mood, normal affect. SKIN: Warm, Dry, normal turgor, no rashes or lesions noted. 06/14/20 20:11 Assessment and plan: This is a 39-year-old male with left anterior shoulder pain. There is no history of trauma. Patient has tenderness on palpation of the anterior rotator cuff. X-ray was done to rule out any other pathology x-ray was normal as reviewed by me Patient given referral to an orthopedist and discharged Past History - Medical History Allergies/Adverse Reactions: Allergies Allergy/AdvReac Type Severity Reaction Status Date / Time No Known Allergies Allergy Verified 10/06/19 20:37 Home Medications: Ambulatory Orders Gabapentin 300 mg PO DAILY 06/14/20 Anemia: No Asthma: No Cancer: No Cardiac Disorders: No CVA: No COPD: No CHF: No Dementia: No Diabetes: No GI Disorders: Yes (RECTAL BLEEDING) Disorders: No HTN: No Hypercholesterolemia: No Liver Disease: No Seizures: No Thyroid Disease: No Other medical history: CHRONIC BACK PAIN - Immunization History Immunization Up to Date: Yes - Psycho-Social/Smoking History Smoking History: Current every day smoker Have you smoked in the past 12 months: Yes Number of Cigarettes Smoked Daily: 5 Information on smoking cessation initiated: Yes *Physical Exam - Vital Signs Last Vital Signs Temp Pulse Resp BP Pulse Ox 16 0/0 L 06/14/20 19:26 06/14/20 19:26 Discharge - Discharge Information Problems reviewed: Yes Clinical Impression/Diagnosis: Left anterior shoulder pain Condition: Stable Disposition: HOME - Admission No - Follow up/Referral Referrals: Mati Suárez MD [Primary Care Provider] - Ez Currie MD [Staff Physician] - - Patient Discharge Instructions Additional Instructions: Continue to take Tylenol as needed for the pain. Follow-up with an orthopedist if pain persist more than 2 weeks. Return to the emergency department immediately with ANY new, persistent or worsening symptoms. Continue any medications as previously prescribed by your physician. You should follow up with your primary doctor as soon as possible regarding today's emergency department visit. . Please make sure your doctor reviews the results of your emergency evaluation. Thank you for coming to the Emergency Department today for your care. It was a pleasure to see you today. Please note that your evaluation is INCOMPLETE until you follow-up with your doctor. - Post Discharge Activity
[2020-06-14 19:46] VITALS: BP 146/94; PULSE 90; TEMP 100
--- OUTSIDE RECORDS SUMMARY | 2020-06-14 19:46 | XMS ---
:1980 Author Organization [facility] Care Team Providers Name Role Phone SOPHIA DIALLO Unavailable Unavailable [facility] Unavailable Unavailable WAYNE MONTANA Unavailable Unavailable JAZMYNE AVENDANO, [id number] Unavailable Unavailable Rachel, Natalie Unavailable Unavailable Rachel, Natalie Unavailable Unavailable Rachel, Natalie Unavailable Unavailable Rachel, Natalie Unavailable Unavailable Rachel, Natalie Unavailable Unavailable Rachel, Natalie Unavailable Unavailable Rachel, Natalie Unavailable Unavailable FERNANDO, HOSEA Unavailable Unavailable FERNANDO, HOSEA Unavailable Unavailable FERNANDO, HOSEA Unavailable Unavailable FERNANDO, HOSEA Unavailable Unavailable FERNANDO, HOSEA Unavailable Unavailable FERNANDO, HOSEA Unavailable Unavailable AHMED, TAUSEEF Unavailable Unavailable Re-disclosure Warning The records that you are about to access may contain information from federally- assisted alcohol or drug abuse programs. If such information is present, then the following federally mandated warning applies: This information has been disclosed to you from records protected by federal confidentiality rules (42 CFR part 2). The federal rules prohibit you from making any further disclosure of this information unless further disclosure is expressly permitted by the written consent of the person to whom it pertains or as otherwise permitted by 42 CFR part 2. A general authorization for the release of medical or other information is NOT sufficient for this purpose. The Federal rules restrict any use of the information to criminally investigate or prosecute any alcohol or drug abuse patient.The records that you are about to access may contain highly sensitive health information, the redisclosure of which is protected by Article 27-F of the [facility] Public Health law. If you continue you may haveaccess to information: Regarding HIV / AIDS; Provided by facilities licensed or operated by the [facility] Office of Mental Health; or Provided by the [facility] Office for People With Developmental Disabilities. If such information is present, then the following [facility] mandated warning applies: This information has been disclosed to you from confidential records which are protected by state law. State law prohibits you from making any further disclosure of this information without the specific written consent of the person to whom it pertains, or as otherwise permitted by law. Any unauthorized further disclosure in violation of state law may result in a fine or intermediate sentence or both. A general authorization for the release of medical or other information is NOT sufficient authorization for further disclosure. Allergies and Adverse Reactions Type Description Substance Reaction Status Data Source(s ) Drug allergy No Known Drug No Known Drug [facility] Encounters Encounter Providers Location Date Indications Data Source(s ) OutpatientOFFIC Attender: Loida HemOnc At 05/31/2020 Deficiency NEXTG EN ([place] E/OUTPATIENT [place] Hem Services 03:15:00 factor VIII Children VISIT EST 33-40 FERNANDO PM EDT - Health 05/31/2020 [facility] ) 03:15:00 PM EDT Deficiency factor VIII Outpatient Attender: MARLEE, 05/31/2020 06:00:00 D66 [facility] [email or web address] TAUSEEF D66 Outpatient Attender: MARLEE [facility] NAN, EDT Care WAYNEReferrer: Corpora tion MARLEE TAUENRIQUE OutpatientOFFI Attender: Natalieclaudia Mariscal HemOnc 02/14/2020 Deficiency NE XTGEN CE/OUTPATIENT Rachel At [facility] 09:45:00 AM factor VIII ([place] VISIT EST Services EDT - Childrens 33-40 02/14/2020 [facility] 09:45:00 AM [facility]) Deficiency factor VIII Outpatient Attender: MARLEE, 02/14/2020 Dyllan,[id number] [facility] TAUEFAdmitter: NAN, 06:00:00 AM EDT [id number] [facility] Marquise WHALEN [facility] TAUENRIQUE D66,[id number] Outpatient Attender: [id number] HHHVCC 11/15/2019 12:22:50 PM I ([facility]) Patient admitted. OutpatientOFFICE/OUTPATIENT Attender: Loida HemOnc 06/27/2019 NEXTGEN VISIT EST 33-40 [place] At Hem 12:30:00 PM ([facility] EDT - Children 06/27/2019 Health 12:30:00 PM [facility]) Attender: 06/27/2019 NEXTGEN [place] 12:30:00 PM ([facility]) Outpatient Attender: 06/27/[address] [place] [address] MARLEE, 07:00:00 AM [facility] EDT Care er: Lilibeth MONTANARef rer: SETH WHALEN6 OutpatientOFFICE/OUTPATIENT Attender: Loida HemOn 06/20/2019 NEXTGEN VISIT EST 33-40 [place] At Hem 01:30:00 PM ([facility] Services EDT - Children 06/20/2019 Health 01:30:00 PM [facility]) Attender: 06/20/2019 NEXTGEN [place] 01:30:00 PM ([facility]) Outpatient Attender: 06/20/2019 Z14 [place] MARLEE, 07:00:00 [facility] .[facility] er: Lilibeth MONTANARef rer: SETH WHALEN Z14.0 Outpatient Attender: MARLEE 06/16/2019 10:50:[address] SETHAdmitter: ZAY WHALEN EDT [facility] TAUSETINOReferrer: Irma WHALEN D66 Outpatient Attender: IMANI 03/13/2019 L HAND SWELLING [facility] ERICAttender: [id number] 11:06:00 PM EDT [facility] JAZMYNE AVENDANOAdmitter: [id number] JAZMYNE AVENDANO L HAND SWELLING Emergency Attender: [id number] 03/13/2019 RIGHT HAND [facility] JAZMYNE AVENDANO 07:17:00 PM EDT SWELLING Health Care C.Admitter: [id number] [place] JAZMYNE AVENDANO RIGHT HAND SWELLING Outpatient Attender: [id number] 01/04/2019 01:43:00 HEMARTHROS IS [facility] JUAN ALBERTO JAZMYNE EDT Health Care C.Admitter: [id number] [place] JAZMYNE AVENDANO HEMARTHROSIS Outpatient Attender: [id number] 01/04/2019 01:05:00 HEMEARTHRO MAURO [facility] JUAN ALBERTOJAZMYNE EDT Health Care C.Admitter: [phone] [place] JAZMYNE AVENDANO HEMEARTHROSIS Emergency Attender: [id number] 01/03/2019 09:13:00 SWOLLEN FO OT [facility] JAZMYNE AVENDANO EDT Health Care C.Admitter: [id number] [place] emeterio JAZMYNE AVENDANO SWOLLEN FOOT Outpatient Attender: [id number] 01/03/2019 02:10:00 HEMEARTHRO MAURO [facility] JUAN ALBERTOJAZMYNE EDT Health Care C.Admitter: [id number] [place] bryantJAZMYNE Verde HEMEARTHROSIS Outpatient Attender: [id number] 01/03/2019 11:16:00 HEMEARTHRO MAURO [facility] JAZMYNE AVENDANO EDT Health Care C.Admitter: [id number] [place] JAZMYNE AVENDANO HEMEARTHROSIS Immunizations Vaccine Date Status Description Data Source(s) Influenza, injectable, MDCK, completed [facility] preservative free, Care Suyapa oration quadrivalent Medications Medication Brand Start Product Dose Route Administrative Pharmacy St atus Indications Reaction Description Data Name Date Form Instructions Instructions Source(s) No complet [facility] Discharge ed [facility] for this Care episode. 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/31/2020 [place] VIII deficiency VIII DEFICIENCY 06:00:00 AM [facility] EDT Care Corporati on Z14.01 Asymptomatic ASYMPTOMATIC Diagnosis [facility] A HEMOPHILIA A 07:00:00 AM [facility] alth carrier CARRIER EDT Care Corporati on M79.89 Other specified OTHER SPECIFIED Diagnosis 03/13/2019 [place] soft tissue SOFT TISSUE 11:06:00 PM On license of [facility] disorders DISORDERS EDT Care Corporati on M79.642 Pain in left hand PAIN IN LEFT HAND Diagnosis 03/13/2019 [place] 11:06:00 PM [facility] EDT Care Corporati on 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 01/03/2019 [place] other OF OTHER 11:16:00 AM [facility] specified parts SPECIFIED PARTS EDT Care Corporation of digestive OF DIGESTIVE tract TRACT 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 Diagnosis 01/03/2019 [place] other organs OF OTHER ORGANS 11:16:00 AM [facility] EDT Care Corporati on M25.071 Hemarthrosis, HEMARTHROSIS, Diagnosis 01/03/2019 [facility] right ankle RIGHT ANKLE 11:16:00 AM On license of [facility] EDT Care Corporati on M79.671 Pain in right PAIN IN RIGHT Diagnosis 01/03/2019 [facility] foot FOOT 11:16:00 AM [facility] EDT Care Corporati on Surgeries/Procedures Procedure Description Date Indications Data Source(s) OFFICE/OUTPATIENT 05/31/2020 NEXTGEN ([place] VISIT EST 33-40 12:00:00 AM EDT - [facility] 05/31/2020 [facility]) 12:00:00 AM EDT THER/PROPH/DIAG INJ IV 05/31/2020 NEXTG EN ([place] PUSH 12:00:00 AM EDT - [facility] 05/31/2020 [facility]) 12:00:00 AM EDT OFFICE/OUTPATIENT 02/14/2020 NEXTGEN ([place] VISIT EST 33-40 12:00:00 AM EDT [facility] 02/14/2020 [facility]) 12:00:00 AM EDT THER/PROPH/DIAG IV INF 02/14/2020 NEXTG EN ([place] INIT 12:00:00 AM EDT - [facility] 02/14/2020 [facility]) 12:00:00 AM EDT 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 To 06/27/2019 NEXTGE N ([place] Modifier 12:00:00 AM EDT - [facility] 06/27/2019 [facility]) 12:00:00 AM EDT OFFICE/OUTPATIENT 06/27/2019 NEXTGEN ([place] VISIT EST 33-40 12:00:00 AM EDT - [facility] 06/27/2019 [facility]) 12:00:00 AM EDT Factor viii 06/27/2019 NEXTGEN ([place] 12:00:00 AM EDT - [facility] 06/27/2019 [facility]) 12:00:00 AM EDT THER/PROPH/DIAG IV INF 06/27/2019 NEXTG EN ([place] INIT 12:00:00 AM EDT - [facility] 06/27/2019 [facility]) 12:00:00 AM EDT Tree Trimming Supervisor To Use Change 06/20/2019 NEXTGEN ([place] Control Not Related 12:00:00 AM EDT - [facility] 06/20/2019 [facility]) 12:00:00 AM EDT 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 To 06/20/2019 NEXTGE N ([place] Modifier 12:00:00 AM EDT - [facility] 06/20/2019 [facility]) 12:00:00 AM EDT OFFICE/OUTPATIENT 06/20/2019 NEXTGEN ([place] VISIT EST 33-40 12:00:00 AM EDT - [facility] 06/20/2019 [facility]) 12:00:00 AM EDT Inj, afstyla, 1 i.u. 06/20/2019 NEXTGEN ([place] 12:00:00 AM EDT - [facility] 06/20/2019 [facility]) 12:00:00 AM EDT THER/PROPH/DIAG IV INF 06/20/2019 NEXTG EN ([place] INIT 12:00:00 AM EDT - [facility] 06/20/2019 [facility]) 12:00:00 AM EDT Results ID Date Data Source [id number] 03/14/2019 05:29:50 PM EDT [facility] [place], [place] [id number] Corporation Name Value Range Interpretation Description Data Source(s ) Supporting Code Document(s ) ABO-Rh Type A POS <td> [place] 03/13/2019 [facility] 20:16</td><td> Care ABO-Rh Type Corporation </td><td> A POS
</td> Specimen 03/16/20 <td> [place] expiration 19 23:59 03/13/2019 [facility] date of Blood 20:16</td><td> Care Specimen Corporation Expiration Date </td><td> 03/16/2019 23:59
</td> Antibody NEG <td> [place] Screen 03/13/2019 [facility] 20:16</td><td> Care Antibody Corporation Screen </td><td> NEG
</td> ID Date Data Source [id number] 03/14/2019 05:29:50 PM EDT [facility] [place], [place] [id number] Corporation Name Value Range Interpretation Description Data Sup porting Code Source(s) Document(s ) Hand AP, (PACSIMAGE <td> [place] Lat & 03/13/2019 [facility] Oblique Lt ) Final 20:08</td><td Care Result > Hand AP, Corporation Name: JOSEY Lat & Oblique ALAA S MRN: [id number] Sex: M </td><td><par : agraph 1980 styleCode="It Location: [facility]">(PACSI Admitting MAGE Physician: EMERGENCY )</paragraph> SERVICE

Requesting Final Result Physician: JAMES TREJO

Exam: HAND Name: JOSEY, LEFT 3+VW ALAA S 03/13/2019
21:05 HISTORY: Sex: M History of
hemophilia, : swelling 1980 TECHNIQUE: 3 Location: M views of the hand.
COMPARISON: Admitting None Physician: FINDINGS: EMERGENCY Limited SERVICE examination
fingers held Requesting in flexion and Physician: golden TREJO (not splayed) in

lateral view Exam: HAND limiting LEFT 3+VW visualization. 03/13/2019 On 21:05 these images no acute

<br fracture or /> sulcation HISTORY: seen. Swelling History of of the soft hemophilia, tissues of the swelling left hand. Mild joint

space TECHNIQUE: 3 narrowing of views of the the second hand. through fourth

PIP and AP joints. COMPARISON: IMPRESSION: None Limited

evaluation due FINDINGS: to positioning.

No fracture Limited seen on images examination submitted. fingers held Repeat with in flexion better and positioning overlapped if possible. (not
Resident splayed) in Radiologist: lateral view Fran olivares MD Resident visualization Radiologist . Attending

<br Radiologist: /> On Melissa these images Ja CALVERT no acute Finalizing fracture or Radiologist: sulcation Melissa seen. Ja CALVERT Swelling Transcribed
Date: of the soft 03/13/2019 tissues of 21:37 the left Finalized hand. Mild Date: joint space 03/14/2019 narrowing 09:03
of the second through fourth PIP and AP joints.

IMPRESSION:

Limited evaluation due to positioning.

No fracture seen on images submitted. Repeat with better positioning
if possible.

Resident Radiologist: Fran Martinez MD Resident Radiologist
Attending Radiologist: Melissa Peres MD
Finalizing Radiologist: Melissa Peres MD
Transcribed Date: 03/13/2019 21:37
Finalized Date: 03/14/2019 09:03

</t d> ID Date Data Source [id number] 03/14/2019 05:29:50 PM EDT [facility] [place], [place] [id number] Corporation Name Value Range Interpretation Description Data Sup porting Code Source(s) Document(s ) Leukocytes 6.2 k/mm3 4.5-10 <td> 03/14/2019 [place] [#/volume] in .8 06:17</td><td> [facility] Blood by k/mm3 WBC </td><td> Health Care Automated count Corporation 6.2
(4.5-10.8) k/mm3 </td> Hemoglobin 14.3 g/dL 12.3-1 <td> 03/14/2019 [place] [Mass/volume] 6.0 06:17</td><td> County in Blood g/dL HGB </td><td> Health Care Corporation 14.3
(12.3-16.0) g/dL </td> Erythrocyte 32.9 % 32.0-3 <td> 03/14/2019 [place] mean 6.0 % 06:17</td><td> County corpuscular MCHC </td><td> Health Care hemoglobin Corporation concentration 32.9 [Mass/volume] in Blood from
Fetus by (32.0-36.0) % Automated count </td> Erythrocytes 5.02 m/mm3 4.20-5 <td> 03/14/2019 [facility] r [#/volume] in .50 06:17</td><td> [facility] Blood m/mm3 RBC </td><td> Health Care Corporation 5.02
(4.20-5.50) m/mm3 </td> Erythrocyte 86.7 fL 80.0-9 <td> 03/14/2019 [place] mean 5.0 fL 06:17</td><td> [facility] corpuscular MCV </td><td> Health Care volume [Entitic Corporation volume] by 86.7 Automated count
(80.0-95.0) fL </td> Hematocrit 43.5 % 38.0-4 <td> 03/14/2019 [place] [Volume 7.0 % 06:17</td><td> County Fraction] of HCT </td><td> Health Care Blood by Corporation Automated count 43.5
(38.0-47.0) % </td> Erythrocyte 28.5 pg 27.0-3 <td> 03/14/2019 [place] mean 1.5 pg 06:17</td><td> County corpuscular MCH </td><td> Health Care hemoglobin Corporation [Entitic mass] 28.5 by Automated count
(27.0-31.5) pg </td> Monocytes/Leuko 4.9 % 0.0-11 <td> 03/13/2019 [facility] cytes [Pure .0 % 20:16</td><td> County number Monocytes. Health Care fraction] in </td><td> Corporation Blood by Automated count 4.9
(0.0-11.0) % </td> Basophils+Eosin 2.0 % 0.0-5. <td> 03/13/2019 [facility] ophils+Monocyte 0 % 20:16</td><td> County s [#/volume] in Eosinophils Health Care Blood by </td><td> [employer] Automated count 2.0
(0.0-5.0) % </td> Erythrocyte 12.3 % 11.5-1 <td> 03/14/2019 [place] distribution 4.5 % 06:17</td><td> County width [Entitic RDW </td><td> Health Car e volume] by [employer] Automated count 12.3
(11.5-14.5) % </td> Platelet mean 10.3 fL 9.8-12 <td> 03/14/2019 [facility] r volume [Entitic .8 fL 06:17</td><td> County volume] in MPV </td><td> Health Care Blood by [employer] Automated count 10.3
(9.8-12.8) fL </td> Lymphocytes 34.3 % 21.0-5 <td> 03/13/2019 [place] [#/volume] in 5.0 % 20:16</td><td> County Blood by Lymphocytes Health Care Automated count </td><td> [employer] 34.3
(21.0-55.0) % </td> Platelets 253 k/mm3 160-41 <td> 03/14/2019 [place] [#/volume] in 0 06:17</td><td> County Blood by k/mm3 Platelet Count Health Care Automated count </td><td> [employer] 253
(160-410) k/mm3 </td> Potassium 4.0 mEq/L 3.5-5. <td> 03/13/2019 [place] [Moles/volume] 1 20:16</td><td> [place] in Serum or mEq/L Potassium-Serum [facility] Plasma </td><td> [employer] 4.0
(3.5-5.1) mEq/L </td> Basophils 0.9 % 0.0-2. <td> 03/13/2019 [place] [#/volume] in 0 % 20:16</td><td> [facility] Blood by [employer] [facility] Automated count </td><td> [employer] 0.9
(0.0-2.0) % </td> Immature 0.3 % 0.0-0. <td> 03/13/2019 [place] granulocytes/10 5 % 20:16</td><td> [facility] 0 leukocytes in IG% </td><td> [facility] Blood by [employer] Automated count 0.3
(0.0-0.5) %
The IG fraction represents metamyelocytes, myelocytes and/or
promyelocytes and is only reported as part of the automated
differential when found at a percentage of less than 6.
If higher than 6%, a manual differential will be performed.

(0.0-0.5) % </td> Glucose 114 mg/dL 70-105 <td> 03/13/2019 [place] [Mass/volume] mg/dL 20:16</td><td> [facility] in Blood Glucose-Serum [facility] </td><td><rosalie [employer] raph styleCode="Bold "> 114 H </paragraph>
(70-105) mg/dL </td> Neutrophils [#] 57.6 % 32.0-7 <td> 03/13/2019 [facility] in Body fluid 0.0 % 20:16</td><td> [facility] by Manual count Neutrophils [facility] </td><td> [employer] 57.6
(32.0-70.0) % </td> Sodium 139 mEq/L 135-14 <td> 03/13/2019 [place] [Moles/volume] 5 20:16</td><td> [place] in Serum or mEq/L Sodium-Serum Health Care Plasma </td><td> Corporation 139
(135-145) mEq/L </td> Carbon dioxide, 27 mEq/L 22-30 <td> 03/13/2019 [facility] total mEq/L 20:16</td><td> County [Moles/volume] CO2 </td><td> Health Car e in Serum or Corporation Plasma 27
(22-30) mEq/L </td> Urea nitrogen 12 mg/dL 6-22 <td> 03/13/2019 [facility] r [Mass/volume] mg/dL 20:16</td><td> County in Blood BUN </td><td> Health Care [employer] 12
(6-22) mg/dL </td> Aspartate 17 U/L 4-35 <td> 03/13/2019 [place] aminotransferas U/L 20:16</td><td> County e [Enzymatic AST (SGOT) Health Care activity/volume </td><td> [employer] ] in Serum or Plasma 17
(4-35) U/L </td> Bilirubin.total 0.4 mg/dL 0.2-1. <td> 03/13/2019 [facility] [Mass/volume] 3 20:16</td><td> [place] in Blood mg/dL Bilirubin - Health Care Total [employer] </td><td> 0.4
(0.2-1.3) mg/dL </td> Alanine 20 U/L 6-55 <td> 03/13/2019 [place] aminotransferas U/L 20:16</td><td> County e [Enzymatic ALT (SGPT) Health Care activity/volume </td><td> [employer] ] in Serum or Plasma 20
(6-55) U/L </td> Creatinine 0.88 mg/dL 0.72-1 <td> 03/13/2019 [place] [Moles/volume] .25 20:16</td><td> [place] in Serum or mg/dL Creatinine. Health Care Plasma </td><td> [employer] 0.88
(0.72-1.25) mg/dL </td> Chloride 104 mEq/L 98-107 <td> 03/13/2019 [place] [Moles/volume] mEq/L 20:16</td><td> [place] in Serum or Chloride Health Care Plasma </td><td> [employer] 104
(98-107) mEq/L </td> Albumin 4.5 g/dL 3.4-4. <td> 03/13/2019 [place] [Mass/volume] 8 g/dL 20:16</td><td> [place] in Serum or Albumin Health Care Plasma </td><td> [employer] 4.5
(3.4-4.8) g/dL </td> Hemolysis index No <td> 03/13/2019 [facility] of Serum or Hemolysis 20:16</td><td> [facility] Plasma Hemolysis Index Health [facility] </td><td> [employer] No Hemolysis
</td> Anion gap in 8 mEq/L 7-13 <td> 03/13/2019 [place] Serum or Plasma mEq/L 20:16</td><td> [facility] Anion Gap Health Care </td><td> [employer] 8
(7-13) mEq/L </td> Calcium 10.0 mg/dL 8.6-10 <td> 03/13/2019 [place] [Mass/volume] .2 20:16</td><td> [facility] in Blood mg/dL Calcium Health Care </td><td> [employer] 10.0
(8.6-10.2) mg/dL </td> Proteins - 7.8 g/dL 6.4-8. <td> 03/13/2019 [place] Total 3 g/dL 20:16</td><td> [facility] Proteins - Health Care Total [employer] </td><td> 7.8
(6.4-8.3) g/dL </td> Globulin 3.3 gm/dL 2.9-4. <td> 03/13/2019 [place] [Mass/volume] 0 20:16</td><td> County in Serum gm/dL Globulin Health Care </td><td> [employer] 3.3
(2.9-4.0) gm/dL </td> Icteric index Not <td> 03/13/2019 [facility] r of Serum or Icteric 20:16</td><td> [facility] Plasma Icteric Index Health Care </td><td> [employer] Not Icteric
</td> Lipemic index No Lipemia <td> 03/13/2019 [facility] er of Serum or 20:16</td><td> [facility] Plasma Lipemia Index Health Care </td><td> [facility] No Lipemia
</td> Prothrombin 10.5 secs 9.8-12 <td> 03/13/2019 [place] time (PT) .0 20:16</td><td> [facility] secs Prothrombin Health Care Time. [facility] </td><td> 10.5
(9.8-12.0) secs </td> aPTT panel - 76.2 secs 25.0-3 <td> 03/13/2019 [place] Platelet poor 2.0 20:16</td><td> [facility] plasma secs Partial [facility] Thromboplastin [facility] Time </td><td><rosalie raph styleCode="Bold "> 76.2 H </paragraph>
(25.0-32.0) secs
Result confirmed. Test repeated.

(25.0-32.0) secs </td> ID Date Data Source [id number] 01/04/2019 04:15:47 PM EDT [facility] [place], [place] [id number] Corporation Name Value Range Interpretation Description Data Sup porting Code Source(s) Document(s ) Ankle 3 (PACSIMAGE <td> [place] Views Rt 01/04/2019 [facility] ) Final 00:12</td><td> Care Result Ankle 3 Views Corporation Name: Rt JOSEY DANO Cartagena MRN: </td><td><para [id number] Sex: M graph : styleCode="Areli 1980 lics">(PACSIMA Location: [facility] Admitting Physician: )</paragraph>< EMERGENCY br/>
SERVICE Final Result Requesting Physician:

IMELDA LEES Name: JOSEY, Exam: ANKLE ALAA S RIGHT 3+ VIEWS
01/04/2019 00:50 Sex: M HISTORY:
Swelling : TECHNIQUE: 1980 AP, lateral and Location: M oblique views
of right ankle Admitting AP, lateral Physician: and oblique EMERGENCY views of the SERVICE right foot
Total of 6 Requesting images Physician: COMPARISON: IMELDA LEES 11/10/2017 and older

FINDINGS: Exam: ANKLE There is no RIGHT 3+ VIEWS acute osseous 01/04/2019 or articular 00:50 abnormality. The joint

<br/ spaces are > HISTORY: maintained. The Swelling ankle mortise is intact.

Degenerative TECHNIQUE: changes of the
tibiotalar AP, lateral joint are again and oblique seen. views of right IMPRESSION: ankle No acute
osseous or AP, lateral articular and oblique abnormality. views of the Degenerative right foot changes of the
tibiotalar Total of 6 joint, images unchanged from

prior. If COMPARISON: there is 11/10/2017 and suspicion of older infection, an

MRI of the FINDINGS: region of interest may be

obtained for There is no further acute osseous evaluation. or articular Resident abnormality. Radiologist: The joint Imelda Latham MD
Resident spaces are Radiologist maintained. Attending The ankle Radiologist: mortise is Honorio Murrell MD intact. Finalizing Degenerative Radiologist:
Honorio Murrell MD changes of Transcribed the tibiotalar Date: joint are 01/04/2019 again seen. 07:38 Finalized Date:

<br/ 01/04/2019 > 08:08 IMPRESSION:

No acute osseous or articular abnormality.

Degenerative changes of the tibiotalar joint, unchanged from
prior. If there is suspicion of infection, an MRI of the region
of interest may be obtained for further evaluation.

<br/ >
Resident Radiologist: Imelda Latham MD Resident Radiologist
Attending Radiologist: Honorio Murrell MD
Finalizing Radiologist: Honorio Murrell MD
Transcribed Date: 01/04/2019 07:38
Finalized Date: 01/04/2019 08:08

</td > Foot 3 (PACSIMAGE <td> [place] Views Rt 01/04/2019 [facility] ) Final 00:12</td><td> Care Result Foot 3 Views [employer] Name: Rt DANO DOWLING MRN: </td><td><para [id number] Sex: M graph : styleCode="Areli 1980 lics">(PACSIMA Location: [facility] Admitting Physician: )</paragraph>< EMERGENCY br/>
SERVICE Final Result Requesting Physician:

IMELDA LEES Name: JOSEY, Exam: FOOT DANO [place] RIGHT 3 VIEWS
01/04/2019 00:53 Sex: M HISTORY:
Swelling : TECHNIQUE: 1980 AP, lateral and Location: M oblique views
of right ankle Admitting AP, lateral Physician: and oblique EMERGENCY views of the SERVICE right foot
Total of 6 Requesting images Physician: COMPARISON: IMELDA LEES 11/10/2017 and older

FINDINGS: Exam: FOOT There is no RIGHT 3 VIEWS acute osseous 01/04/2019 or articular 00:53 abnormality. The joint

<br/ spaces are > HISTORY: maintained. The Swelling ankle mortise is intact.

Degenerative TECHNIQUE: changes of the
tibiotalar AP, lateral joint are again and oblique seen. views of right IMPRESSION: ankle No acute
osseous or AP, lateral articular and oblique abnormality. views of the Degenerative right foot changes of the
tibiotalar Total of 6 joint, images unchanged from

prior. If COMPARISON: there is 11/10/2017 and suspicion of older infection, an

MRI of the FINDINGS: region of interest may be

obtained for There is no further acute osseous evaluation. or articular Resident abnormality. Radiologist: The joint Imelda Latham MD
Resident spaces are Radiologist maintained. Attending The ankle Radiologist: mortise is Honorio Murrell MD intact. Finalizing Degenerative Radiologist:
Honorio Murrell MD changes of Transcribed the tibiotalar Date: joint are 01/04/2019 again seen. 07:38 Finalized Date:

<br/ 01/04/2019 > 08:08 IMPRESSION:

No acute osseous or articular abnormality.

Degenerative changes of the tibiotalar joint, unchanged from
prior. If there is suspicion of infection, an MRI of the region
of interest may be obtained for further evaluation.

<br/ >
Resident Radiologist: Imelda Latham MD Resident Radiologist
Attending Radiologist: Honorio Murrell MD
Finalizing Radiologist: Honorio Murrell MD
Transcribed Date: 01/04/2019 07:38
Finalized Date: 01/04/2019 08:08

</td > Ankle 3 (PACSIMAGE <td> [place] Views Rt 01/04/2019 [facility] ) Final 00:12</td><td> Care Result Ankle 3 Views [employer] Name: JOSEY Rt DANO S MRN: </td><td><para [id number] Sex: M graph : styleCode="Areli 1980 lics">(PACSIMA Location: [facility] Admitting Physician: )</paragraph>< EMERGENCY br/>
SERVICE Final Result Requesting Physician:

IMELDA LEES Name: JOSEY, Exam: ANKLE ALAA S RIGHT 3+ VIEWS
01/04/2019 00:50 Sex: M HISTORY:
Swelling : TECHNIQUE: 1980 AP, lateral and Location: M oblique views
of right ankle Admitting AP, lateral Physician: and oblique EMERGENCY views of the SERVICE right foot
Total of 6 Requesting images Physician: COMPARISON: IMELDA LEES 11/10/2017 and older

FINDINGS: Exam: ANKLE There is no RIGHT 3+ VIEWS acute osseous 01/04/2019 or articular 00:50 abnormality. The joint

<br/ spaces are > HISTORY: maintained. The Swelling ankle mortise is intact.

Degenerative TECHNIQUE: changes of the
tibiotalar AP, lateral joint are again and oblique seen. views of right IMPRESSION: ankle No acute
osseous or AP, lateral articular and oblique abnormality. views of the Degenerative right foot changes of the
tibiotalar Total of 6 joint, images unchanged from

prior. If COMPARISON: there is 11/10/2017 and suspicion of older infection, an

MRI of the FINDINGS: region of interest may be

obtained for There is no further acute osseous evaluation. or articular Resident abnormality. Radiologist: The joint Imelda Latham MD
Resident spaces are Radiologist maintained. Attending The ankle Radiologist: maggiise is Honorio Murrell MD intact. Finalizing Degenerative Radiologist:
Honorio Murrell MD changes of Transcribed the tibiotalar Date: joint are 01/04/2019 again seen. 07:38 Finalized Date:

<br/ 01/04/2019 > 08:08 IMPRESSION:

No acute osseous or articular abnormality.

Degenerative changes of the tibiotalar joint, unchanged from
prior. If there is suspicion of infection, an MRI of the region
of interest may be obtained for further evaluation.

<br/ >
Resident Radiologist: Imelda Latham MD Resident Radiologist
Attending Radiologist: Honorio Murrell MD
Finalizing Radiologist: Honorio Murrell MD
Transcribed Date: 01/04/2019 07:38
Finalized Date: 01/04/2019 08:08

</td > Foot 3 (PACSIMAGE <td> [place] Views Rt 01/04/2019 [facility] ) Final 00:12</td><td> Care Result Foot 3 Views [employer] Name: JOSEY Rt DANO [place] MRN: </td><td><para [id number] Sex: M graph : styleCode="Areli 1980 lics">(PACSIMA Location: M Admitting Physician: )</paragraph>< EMERGENCY br/>
SERVICE Final Result Requesting Physician:

IMELDA LEES Name: JOSEY, Exam: FOOT DANO S RIGHT 3 VIEWS
01/04/2019 00:53 Sex: M HISTORY:
Swelling : TECHNIQUE: 1980 AP, lateral and Location: M oblique views
of right ankle Admitting AP, lateral Physician: and oblique EMERGENCY views of the SERVICE right foot
Total of 6 Requesting images Physician: COMPARISON: IMELDA LEES 11/10/2017 and older

FINDINGS: Exam: FOOT There is no RIGHT 3 VIEWS acute osseous 01/04/2019 or articular 00:53 abnormality. The joint

<br/ spaces are > HISTORY: maintained. The Swelling ankle mortise is intact.

Degenerative TECHNIQUE: changes of the
tibiotalar AP, lateral joint are again and oblique seen. views of right IMPRESSION: ankle No acute
osseous or AP, lateral articular and oblique abnormality. views of the Degenerative right foot changes of the
tibiotalar Total of 6 joint, images unchanged from

prior. If COMPARISON: there is 11/10/2017 and suspicion of older infection, an

MRI of the FINDINGS: region of interest may be

obtained for There is no further acute osseous evaluation. or articular Resident abnormality. Radiologist: The joint Imelda Latham MD
Resident spaces are Radiologist maintained. Attending The ankle Radiologist: dami is Honorio Murrell MD intact. Finalizing Degenerative Radiologist:
Honorio Murrell MD changes of Transcribed the tibiotalar Date: joint are 01/04/2019 again seen. 07:38 Finalized Date:

<br/ 01/04/2019 > 08:08 IMPRESSION:

No acute osseous or articular abnormality.

Degenerative changes of the tibiotalar joint, unchanged from
prior. If there is suspicion of infection, an MRI of the region
of interest may be obtained for further evaluation.

<br/ >
Resident Radiologist: Imelda Latham MD Resident Radiologist
Attending Radiologist: Honorio Murrell MD
Finalizing Radiologist: Honorio Murrell MD
Transcribed Date: 01/04/2019 07:38
Finalized Date: 01/04/2019 08:08

</td > ID Date Data Source [id number]- 01/04/2019 04:15:47 PM EDT [facility] [place], [place] [id number] Corporation Name Value Range Interpretation Description Data Sup porting Code Source(s) Document(s ) Leukocytes 4.8 k/mm3 4.5-10 <td> 01/04/2019 [place] [#/volume] in .8 06:10</td><td> [facility] Blood by k/mm3 WBC </td><td> [employer] Automated count [employer] 4.8
(4.5-10.8) k/mm3 </td> Erythrocytes 4.80 m/mm3 4.20-5 <td> 01/04/2019 [facility] r [#/volume] in .50 06:10</td><td> [facility] Blood m/mm3 RBC </td><td> [employer] 4.80
(4.20-5.50) m/mm3 </td> Erythrocyte 12.4 % 11.5-1 <td> 01/04/2019 [place] distribution 4.5 % 06:10</td><td> [place] width [Entitic RDW </td><td> Health Car e volume] by Corporation Automated count 12.4
(11.5-14.5) % </td> Erythrocyte 28.8 pg 27.0-3 <td> 01/04/2019 [place] mean 1.5 pg 06:10</td><td> [place] corpuscular MCH </td><td> Health Care hemoglobin Corporation [Entitic mass] 28.8 by Automated count
(27.0-31.5) pg </td> Hematocrit 42.1 % 38.0-4 <td> 01/04/2019 [place] [Volume 7.0 % 06:10</td><td> [place] Fraction] of HCT </td><td> Health Care Blood by Corporation Automated count 42.1
(38.0-47.0) % </td> Erythrocyte 32.8 % 32.0-3 <td> 01/04/2019 [place] mean 6.0 % 06:10</td><td> [facility] corpuscular MCHC </td><td> Health Care hemoglobin Corporation concentration 32.8 [Mass/volume] in Blood from
Fetus by (32.0-36.0) % Automated count </td> Erythrocyte 87.7 fL 80.0-9 <td> 01/04/2019 [place] mean 5.0 fL 06:10</td><td> [facility] corpuscular MCV </td><td> Health Care volume [[employer] volume] by 87.7 Automated count
(80.0-95.0) fL </td> Hemoglobin 13.8 g/dL 12.3-1 <td> 01/04/2019 [place] [Mass/volume] 6.0 06:10</td><td> [place] in Blood g/dL HGB </td><td> [facility] Corporation 13.8
(12.3-16.0) g/dL </td> Platelet mean 10.5 fL 9.8-12 <td> 01/04/2019 [facility] r volume [Entitic .8 fL 06:10</td><td> [place] volume] in MPV </td><td> Health Care Blood by [employer] Automated count 10.5
(9.8-12.8) fL </td> Platelets 234 k/mm3 160-41 <td> 01/04/2019 [place] [#/volume] in 0 06:10</td><td> [facility] Blood by k/mm3 Platelet Count Health Care Automated count </td><td> [employer] 234
(160-410) k/mm3 </td> Basophils+Eosin 3.9 % 0.0-5. <td> 01/04/2019 [facility] ophils+Monocyte 0 % 06:10</td><td> County s [#/volume] in Eosinophils Health Care Blood by </td><td> [employer] Automated count 3.9
(0.0-5.0) % </td> Monocytes/Leuko 10.6 % 0.0-11 <td> 01/04/2019 [facility] cytes [Pure .0 % 06:10</td><td> [place] number Monocytes. Health Care fraction] in </td><td> [facility] Blood by Automated count 10.6
(0.0-11.0) % </td> Basophils 1.0 % 0.0-2. <td> 01/04/2019 [place] [#/volume] in 0 % 06:10</td><td> [facility] Blood by Basophils Health Care Automated count </td><td> [employer] 1.0
(0.0-2.0) % </td> Lymphocytes 38.3 % 21.0-5 <td> 01/04/2019 [place] [#/volume] in 5.0 % 06:10</td><td> [facility] Blood by Lymphocytes Health Care Automated count </td><td> [employer] 38.3
(21.0-55.0) % </td> Glucose 80 mg/dL 70-105 <td> 01/04/2019 [place] [Mass/volume] mg/dL 06:10</td><td> [facility] in Blood Glucose-Serum Health Care </td><td> [employer] 80
(70-105) mg/dL </td> Neutrophils [#] 46.0 % 32.0-7 <td> 01/04/2019 [facility] in Body fluid 0.0 % 06:10</td><td> [facility] by Manual count Neutrophils [facility] </td><td> [facility] 46.0
(32.0-70.0) % </td> Immature 0.2 % 0.0-0. <td> 01/04/2019 [place] granulocytes/10 5 % 06:10</td><td> [facility] 0 leukocytes in IG% </td><td> Health Ne re Blood by [employer] Automated count 0.2
(0.0-0.5) %
The IG fraction represents metamyelocytes, myelocytes and/or
promyelocytes and is only reported as part of the automated
differential when found at a percentage of less than 6.
If higher than 6%, a manual differential will be performed.

(0.0-0.5) % </td> Sodium 138 mEq/L 135-14 <td> 01/04/2019 [place] [Moles/volume] 5 06:10</td><td> [place] in Serum or mEq/L Sodium-Serum Health Care Plasma </td><td> [facility] 138
(135-145) mEq/L </td> Carbon dioxide, 25 mEq/L 22-30 <td> 01/04/2019 [facility] total mEq/L 06:10</td><td> [facility] [Moles/volume] CO2 </td><td> Health Car e in Serum or [employer] Plasma 25
(22-30) mEq/L </td> Creatinine 0.83 mg/dL 0.72-1 <td> 01/04/2019 [place] [Moles/volume] .25 06:10</td><td> [place] in Serum or mg/dL Creatinine. Health Care Plasma </td><td> [employer] 0.83
(0.72-1.25) mg/dL </td> Urea nitrogen 9 mg/dL 6-22 <td> 01/04/2019 [facility] r [Mass/volume] mg/dL 06:10</td><td> [place] in Blood BUN </td><td> [facility] [employer] 9
(6-22) mg/dL </td> Potassium 4.1 mEq/L 3.5-5. <td> 01/04/2019 [place] [Moles/volume] 1 06:10</td><td> [place] in Serum or mEq/L Potassium-Serum Health Care Plasma </td><td> [employer] 4.1
(3.5-5.1) mEq/L </td> Chloride 107 mEq/L 98-107 <td> 01/04/2019 [place] [Moles/volume] mEq/L 06:10</td><td> [place] in Serum or Chloride Health Care Plasma </td><td> [employer] 107
(98-107) mEq/L </td> Icteric index Non <td> 01/04/2019 [facility] r of Serum or Icteric 06:10</td><td> [facility] Plasma Icteric Index Health Care </td><td> [employer] Non Icteric
</td> Prothrombin 10.2 secs 9.8-12 <td> 01/04/2019 [place] time (PT) .0 06:10</td><td> [facility] secs Prothrombin Health Care Time. [employer] </td><td> 10.2
(9.8-12.0) secs </td> Anion gap in 6 mEq/L 7-13 <td> 01/04/2019 [place] Serum or Plasma mEq/L 06:10</td><td> [facility] Anion Gap Health Care </td><td><rosalie [employer] raph styleCode="Bold "> 6 L </paragraph>
(7-13) mEq/L </td> Lipemic index No Lipemia <td> 01/04/2019 [facility] er of Serum or 06:10</td><td> [facility] Plasma Lipemia Index Health Care </td><td> [employer] No Lipemia
</td> Calcium 9.2 mg/dL 8.6-10 <td> 01/04/2019 [place] [Mass/volume] .2 06:10</td><td> [facility] in Blood mg/dL Calcium Health Care </td><td> [employer] 9.2
(8.6-10.2) mg/dL </td> Hemolysis index No <td> 01/04/2019 [facility] of Serum or Hemolysis 06:10</td><td> [facility] Plasma Hemolysis Index Health [facility] </td><td> [employer] No Hemolysis
</td> aPTT panel - 35.1 secs 25.0-3 <td> 01/04/2019 [place] Platelet poor 2.0 06:10</td><td> [facility] plasma secs Partial [facility] Thromboplastin [employer] Time </td><td><rosalie raph styleCode="Bold "> 35.1 H </paragraph>
(25.0-32.0) secs
Result confirmed. Test repeated.

(25.0-32.0) secs </td> Erythrocytes 4.80 m/mm3 4.20-5 <td> 01/04/2019 [facility] r [#/volume] in .50 06:10</td><td> [facility] Blood m/mm3 RBC </td><td> Health Care [employer] 4.80
(4.20-5.50) m/mm3 </td> Leukocytes 4.8 k/mm3 4.5-10 <td> 01/04/2019 [place] [#/volume] in .8 06:10</td><td> [facility] Blood by k/mm3 WBC </td><td> Health Care Automated count [employer] 4.8
(4.5-10.8) k/mm3 </td> Erythrocyte 12.4 % 11.5-1 <td> 01/04/2019 [place] distribution 4.5 % 06:10</td><td> [facility] width [Entitic RDW </td><td> Health Car e volume] by [employer] Automated count 12.4
(11.5-14.5) % </td> Erythrocyte 32.8 % 32.0-3 <td> 01/04/2019 [place] mean 6.0 % 06:10</td><td> [facility] corpuscular MCHC </td><td> Health Care hemoglobin Corporation concentration 32.8 [Mass/volume] in Blood from
Fetus by (32.0-36.0) % Automated count </td> Erythrocyte 28.8 pg 27.0-3 <td> 01/04/2019 [place] mean 1.5 pg 06:10</td><td> [facility] corpuscular MCH </td><td> Health Care hemoglobin Corporation [Entitic mass] 28.8 by Automated count
(27.0-31.5) pg </td> Erythrocyte 87.7 fL 80.0-9 <td> 01/04/2019 [place] mean 5.0 fL 06:10</td><td> [facility] corpuscular MCV </td><td> Health Care volume [[employer] volume] by 87.7 Automated count
(80.0-95.0) fL </td> Hematocrit 42.1 % 38.0-4 <td> 01/04/2019 [place] [Volume 7.0 % 06:10</td><td> [place] Fraction] of HCT </td><td> Health Care Blood by Corporation Automated count 42.1
(38.0-47.0) % </td> Hemoglobin 13.8 g/dL 12.3-1 <td> 01/04/2019 [place] [Mass/volume] 6.0 06:10</td><td> [facility] in Blood g/dL HGB </td><td> [facility] Corporation 13.8
(12.3-16.0) g/dL </td> Basophils 1.0 % 0.0-2. <td> 01/04/2019 [place] [#/volume] in 0 % 06:10</td><td> [facility] Blood by Basophils Health Care Automated count </td><td> [employer] 1.0
(0.0-2.0) % </td> Basophils+Eosin 3.9 % 0.0-5. <td> 01/04/2019 [facility] ophils+Monocyte 0 % 06:10</td><td> County s [#/volume] in Eosinophils Health Care Blood by </td><td> [employer] Automated count 3.9
(0.0-5.0) % </td> Monocytes/Leuko 10.6 % 0.0-11 <td> 01/04/2019 [facility] cytes [Pure .0 % 06:10</td><td> [place] number Monocytes. Health Care fraction] in </td><td> [facility] Blood by Automated count 10.6
(0.0-11.0) % </td> Lymphocytes 38.3 % 21.0-5 <td> 01/04/2019 [place] [#/volume] in 5.0 % 06:10</td><td> [facility] Blood by Lymphocytes Health Care Automated count </td><td> [employer] 38.3
(21.0-55.0) % </td> Platelets 234 k/mm3 160-41 <td> 01/04/2019 [place] [#/volume] in 0 06:10</td><td> [facility] Blood by k/mm3 Platelet Count Health Care Automated count </td><td> [employer] 234
(160-410) k/mm3 </td> Platelet mean 10.5 fL 9.8-12 <td> 01/04/2019 [facility] r volume [Entitic .8 fL 06:10</td><td> [place] volume] in MPV </td><td> Health Care Blood by [employer] Automated count 10.5
(9.8-12.8) fL </td> Chloride 107 mEq/L 98-107 <td> 01/04/2019 [place] [Moles/volume] mEq/L 06:10</td><td> [place] in Serum or Chloride Health Care Plasma </td><td> [employer] 107
(98-107) mEq/L </td> Potassium 4.1 mEq/L 3.5-5. <td> 01/04/2019 [place] [Moles/volume] 1 06:10</td><td> [place] in Serum or mEq/L Potassium-Serum Health Care Plasma </td><td> [employer] 4.1
(3.5-5.1) mEq/L </td> Sodium 138 mEq/L 135-14 <td> 01/04/2019 [place] [Moles/volume] 5 06:10</td><td> [place] in Serum or mEq/L Sodium-Serum Health Care Plasma </td><td> [employer] 138
(135-145) mEq/L </td> Glucose 80 mg/dL 70-105 <td> 01/04/2019 [place] [Mass/volume] mg/dL 06:10</td><td> [place] in Blood Glucose-Serum [facility] </td><td> [employer] 80
(70-105) mg/dL </td> Neutrophils [#] 46.0 % 32.0-7 <td> 01/04/2019 [facility] in Body fluid 0.0 % 06:10</td><td> [facility] by Manual count Neutrophils [facility] </td><td> [employer] 46.0
(32.0-70.0) % </td> Immature 0.2 % 0.0-0. <td> 01/04/2019 [place] granulocytes/10 5 % 06:10</td><td> [facility] 0 leukocytes in IG% </td><td> [facility] Blood by [employer] Automated count 0.2
(0.0-0.5) %
The IG fraction represents metamyelocytes, myelocytes and/or
promyelocytes and is only reported as part of the automated
differential when found at a percentage of less than 6.
If higher than 6%, a manual differential will be performed.

(0.0-0.5) % </td> Anion gap in 6 mEq/L 7-13 <td> 01/04/2019 [place] Serum or Plasma mEq/L 06:10</td><td> [facility] Anion Gap [facility] </td><td><rosalie [employer] raph styleCode="Bold "> 6 L </paragraph>
(7-13) mEq/L </td> Calcium 9.2 mg/dL 8.6-10 <td> 01/04/2019 [place] [Mass/volume] .2 06:10</td><td> [place] in Blood mg/dL Calcium Health Care </td><td> [facility] 9.2
(8.6-10.2) mg/dL </td> Creatinine 0.83 mg/dL 0.72-1 <td> 01/04/2019 [place] [Moles/volume] .25 06:10</td><td> [place] in Serum or mg/dL Creatinine. Health Care Plasma </td><td> [employer] 0.83
(0.72-1.25) mg/dL </td> Urea nitrogen 9 mg/dL 6-22 <td> 01/04/2019 [facility] r [Mass/volume] mg/dL 06:10</td><td> [facility] in Blood BUN </td><td> [place] 9
(6-22) mg/dL </td> Carbon dioxide, 25 mEq/L 22-30 <td> 01/04/2019 [facility] total mEq/L 06:10</td><td> [facility] [Moles/volume] CO2 </td><td> Health Car e in Serum or Corporation Plasma 25
(22-30) mEq/L </td> aPTT panel - 35.1 secs 25.0-3 <td> 01/04/2019 [place] Platelet poor 2.0 06:10</td><td> [facility] plasma secs Partial [facility] Care Thromboplastin [facility] Time </td><td><rosalie raph styleCode="Bold "> 35.1 H </paragraph>
(25.0-32.0) secs
Result confirmed. Test repeated.

(25.0-32.0) secs </td> Prothrombin 10.2 secs 9.8-12 <td> 01/04/2019 [place] time (PT) .0 06:10</td><td> [facility] secs Prothrombin [facility] Care Time. [facility] </td><td> 10.2
(9.8-12.0) secs </td> Icteric index Non <td> 01/04/2019 [facility] r of Serum or Icteric 06:10</td><td> [facility] Plasma Icteric Index Health Care </td><td> Corporation Non Icteric
</td> Lipemic index No Lipemia <td> 01/04/2019 [facility] er of Serum or 06:10</td><td> [facility] Plasma Lipemia Index Health Care </td><td> Corporation No Lipemia
</td> Hemolysis index No <td> 01/04/[address] [facility] [address] of Serum or Hemolysis 06:10</td><td> [facility] Plasma Hemolysis Index Health Care </td><td> Corporation No Hemolysis
</td> Procedure Social History Code Duration Value Status Description Data Source(s ) Caffeine Use 05/31/2020 completed NEXTGEN (Dusty roe Counts Include [facility] 12:00:[address] [facility] [employer] ) Smoking 05/31/2020 Unknown if completed Unknown if ever NEXTGEN ( [place] 12:00:00 AM ever smoked smoked [facility] [employer] ) Caffeine Use 02/14/2020 completed NEXTGEN (Dusty roe Counts Include [facility] 12:00:[address] [facility] [employer] ) Alcohol Use completed NEXTGEN ([facility] ) Smoking Never smoker completed Never smoker [facility] Corporati on Vital Signs ID Date Data Source UNK Name Value Range Interpretation Code Description Data Source(s) Diastolic blood 83 {} Normal (applies to 83 {} [place] pressure non-numeric results) Coun ty [facility] Corpor[facility] on Systolic blood 125 {} Normal (applies to 125 {} [place] pressure non-numeric results) Coun ty [facility] Corpor[facility] on First Respiration 18.0000 {} Normal (applies to 18.0000 {} [place] rate Set non-numeric results) Coun ty [facility] Corpor[facility] on Heart rate 76.0000 {} Normal (applies to 76.0000 {} [place] non-numeric results) Coun ty [facility] Corpor[facility] on Body temperature 97.5000 {} Normal (applies to 97.5000 {} [place] non-numeric results) Coun ty [facility] Corpor[facility] on wt - obtain Normal (applies to {} [place] non-numeric results) Coun ty [facility] Corpor[facility] on weight - kg 81.8180 {} Normal (applies to 81.8180 {} [place] non-numeric results) Coun ty [facility] Corporati on Diastolic blood 82 {} Normal (applies to 82 {} [place] pressure non-numeric results) Coun ty [facility] Corpor[facility] on Systolic blood 119 {} Normal (applies to 119 {} [place] pressure non-numeric results) Coun ty [facility] Corporati on First Respiration 18.0000 {} Normal (applies to 18.0000 {} [place] rate Set non-numeric results) Coun ty [facility] Corporati on Heart rate 86.0000 {} Normal (applies to 86.0000 {} [place] non-numeric results) Coun ty [facility] Corporati on Body temperature 98.4000 {} Normal (applies to 98.4000 {} [place] non-numeric results) Coun ty [facility] Corporati on Diastolic blood 81 {} Normal (applies to 81 {} [place] pressure non-numeric results) Coun ty [facility] Corporati on Systolic blood 129 {} Normal (applies to 129 {} [place] pressure non-numeric results) Coun ty [facility] Corporati on First Respiration 18.0000 {} Normal (applies to 18.0000 {} [place] rate Set non-numeric results) Coun ty [facility] Corporati on Heart rate 80.0000 {} Normal (applies to 80.0000 {} [place] [facility] non-numeric results) [facility] Body temperature 97.7000 {} Normal (applies to 97.7000 {} [place] non-numeric results) [facility] wt - obtain Normal (applies to {} [facility] non-numeric results) [facility] weight - kg 81.8180 {} Normal (applies to 81.8180 {} [facility] non-numeric results) [facility]
== END 2020-06-14 20:17 | disposition home or self-care (01) ==
LOC: FER 19:22
DX: M25.512 Pain in left shoulder (principal)
CPT/HCPCS: 73030-TC-LT-FY; 99283-25

== ENCOUNTER 2020-06-20 17:39 | Emergency (ER) | payer OTHER ==
--- NOTE | 2020-06-20 17:44 | PDOC ---
Rapid Medical Evaluation Time Seen by Provider: 06/20/20 17:43 Medical Evaluation: Allergies Allergy/AdvReac Type Severity Reaction Status Date / Time No Known Allergies Allergy Verified 10/06/19 20:37 06/20/20 17:43 HPI: L shoulder pain x6 days no trauma PE: No gross deficits Orders: nothing, seen in [place] 3 days ago had x-rays 06/20/20 17:43 Discharge Disposition - Diagnosis Shoulder pain - Discharge Dispostion Condition at time of disposition: Stable - Referrals - Patient Instructions - Post Discharge Activity
[2020-06-20 17:49] VITALS: BP 145/88; PULSE 89; TEMP 97.6; BMI 34.3
--- NOTE | 2020-06-20 18:09 | PDOC ---
History of Present Illness - General Chief Complaint: Pain, Acute Stated Complaint: SHOULDER PAIN Time Seen by Provider: 06/20/20 17:43 History Source: Patient Exam Limitations: No Limitations - History of Present Illness Initial Comments: 06/20/20 18:04 Patient is a 39-year-old male with past medical history of hemophilia, here with complaints of left shoulder pain x7 days. 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 States he went to [place] got an x-ray of the shoulder and was referred to Dr. Durant who he saw yesterday. He was given an injection in the shoulder without any relief of symptoms states now his pain is 10 out of 10 throbbing unable to sleep due to the pain. He has been taking diclofenac which was prescribed without any relief of symptoms. PMD: Dr. Suárez PMHX: as above PSOCHX: neg etoh, drug, cig ALL: NKDA GENERAL/CONSTITUTIONAL: [No fever or chills. No weakness. No weight change.] HEAD, EYES, EARS, NOSE AND THROAT: [No change in vision. No ear pain or discharge. No sore throat.] CARDIOVASCULAR: [No chest pain or shortness of breath.] RESPIRATORY: [No cough, wheezing, or hemoptysis.] GASTROINTESTINAL: [No nausea, vomiting, diarrhea or constipation. No rectal bleeding.] GENITOURINARY: [No dysuria, frequency, or change in urination.] MUSCULOSKELETAL: [No joint or muscle swelling or pain. No neck or back pain.] SKIN AND BREASTS: [No rash (+)easy bruising.] NEUROLOGIC: [No headache, vertigo, loss of consciousness, or loss of sensation.] PSYCHIATRIC: [No depression or anxiety.] ENDOCRINE: [No increased thirst. No abnormal weight change.] HEMATOLOGIC/LYMPHATIC: [No anemia, easy bleeding, or history of blood clots.] ALLERGIC/IMMUNOLOGIC: [No hives or skin allergy. No latex allergy.] GENERAL: [The patient is awake, alert, and fully oriented, in no acute distress.] HEAD: [Normal with no signs of trauma.] EYES: [Pupils equal, round and reactive to light, extraocular movements intact, sclera anicteric, conjunctiva clear.] ENT: [Ears normal, nares patent, oropharynx clear without exudates. Moist mucous membranes.] NECK: [Normal range of motion, supple without lymphadenopathy, JVD, or masses.] LUNGS: [Breath sounds equal, clear to auscultation bilaterally. No wheezes, and no crackles.] HEART: [Regular rate and rhythm, normal S1 and S2 without murmur, rub.] ABDOMEN: [Soft, nontender, normoactive bowel sounds. No guarding, no rebound. No masses.] EXTREMITIES: Decreased range of motion to the left shoulder, unable to extend greater than 20 degrees, (+) tenderness to palpation over the anterior shoulder, no clubbing or cyanosis. No cords, erythema, or tenderness.] NEUROLOGICAL: [Cranial nerves II through XII grossly intact. Normal speech, normal gait.] PSYCH: [Normal mood, normal affect.] SKIN: [Warm, Dry, normal turgor, no rashes or lesions noted.] Past History - Medical History Allergies/Adverse Reactions: Allergies Allergy/AdvReac Type Severity Reaction Status Date / Time No Known Allergies Allergy Verified 10/06/19 20:37 Home Medications: Ambulatory Orders Gabapentin 300 mg PO DAILY 06/14/20 Oxycodone HCl/Acetaminophen [Percocet 5/325 -] 1 tab PO Q4H #12 tablet MDD 6 06/20/20 Anemia: No Asthma: No Cancer: No Cardiac Disorders: No CVA: No COPD: No CHF: No Dementia: No Diabetes: No GI Disorders: Yes (RECTAL BLEEDING) Disorders: No HTN: No Hypercholesterolemia: No Liver Disease: No Seizures: No Thyroid Disease: No Other medical history: HEMOPHILLIA. - Immunization History Immunization Up to Date: Yes - Psycho-Social/Smoking History Smoking History: Current some day smoker Have you smoked in the past 12 months: Yes Number of Cigarettes Smoked Daily: 5 Information on smoking cessation initiated: No - Substance Abuse Hx (Audit-C & DAST Scrn) How often the patient has a drink containing alcohol: Never Score: In Men: 4 or > Positive; In Women: 3 or > Positive: 0 Screen Result (Pos requires Nsg. Audit-10AR): Negative In the last yr the pt used illegal drug/Rx for NonMed reason: No Score: Yes response is considered Positive: 0 Screen Result (Positive result requires Nsg. DAST-10): Negative *Physical Exam - Vital Signs Last Vital Signs Temp Pulse Resp BP Pulse Ox 97.6 F 89 18 145/88 99 06/20/20 17:43 06/20/20 17:43 06/20/20 17:43 06/20/20 17:43 06/20/20 17:43 Medical Decision Making - Medical Decision Making 06/20/20 18:04 Patient is a 39-year-old male with past medical history of hemophilia, here with complaints of left shoulder pain x7 days. 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 States he went to [place] got an x-ray of the shoulder and was referred to Dr. Durant who he saw yesterday. He was given an injection in the shoulder without any relief of symptoms states now his pain is 10/10 throbbing unable to sleep due to the pain. He has been taking diclofenac which was prescribed without any relief of symptoms. Patient is here requesting an MRI of the shoulder and pain medication. Symptoms suspicion of rotator cuff injury. We will give Percocet 1 tab p.o. for pain Refer patient to radiology for scheduling of an MRI I discussed the physical exam findings, ancillary test results and final diagno ses with the patient. I answered all of the patient's questions. The patient was satisfied with the care received and felt comfortable with the discharge plan and treatment plan. The Patient agrees to follow up with the primary care physician within 24-72 hours. Discharge - Discharge Information Problems reviewed: Yes Clinical Impression/Diagnosis: Shoulder pain Qualifiers: Chronicity: acute Laterality: left Qualified Code(s): M25.512 - Pain in left shoulder Condition: Stable Disposition: HOME - Additional Discharge Information Prescriptions: Oxycodone HCl/Acetaminophen [Percocet 5/325 -] 1 tab PO Q4H #12 tablet MDD 6 - Follow up/Referral Referrals: Mati Suárez MD [Primary Care Provider] - - Patient Discharge Instructions Patient Printed Discharge Instructions: DI for Shoulder Pain Additional Instructions: Your Discharge Instructions: You must call primary care physician within 24 hours to arrange follow-up. Return to the Emergency Department with any new, persistent or worsening symptoms, for fever, chills, SOB, dizziness or any other concerning changes that may occur. - Post Discharge Activity
== END 2020-06-20 18:16 | disposition home or self-care (01) ==
LOC: JERFT 17:39
DX: M25.512 Pain in left shoulder (principal)
CPT/HCPCS: 99284-25